=== PATIENT | female | born 1935 | race Caucasian/White ===

== ENCOUNTER 2016-09-15 21:01 | Emergency (ER) | payer MEDICARE, MEDICAID ==
[2016-09-15 21:02] VITALS: BMI 26.1
[2016-09-15 21:17] VITALS: RESP 20
[2016-09-15] MEDS ORDERED: Sodium Chloride 0.9% 500 ML IV ONE (21:43)
[2016-09-15] MEDS ORDERED: Sodium Chloride 0.9% 1,000 ML ONE (22:00)
[2016-09-15 22:08] LABS: BASO % 0.8 % (0.0-2.0); EOS # 0.2 K/uL (0.0-0.7); EOS % 3.8 % (0.0-4.0); HEMATOCRIT 36.9 % (34.0-47.0); LYMPH # 1.6 K/uL (1.0-4.3); LYMPH % 35.1 % (20.0-40.0); MEAN CELL VOLUME 78.6 fL (81.0-99.0); MEAN CORPUSCULAR HEMOGLOBIN 25.4 pg (27.0-31.0); MEAN CORPUSCULAR HGB CONC 32.3 g/dL (33.0-37.0); MEAN PLATELET VOLUME 8.3 fL (7.2-11.7); MONO # 0.4 K/uL (0.0-0.8); MONO % 9.6 % (0.0-10.0); RED CELL DISTRIBUTION WIDTH 15.6 % (11.5-14.5); WHITE BLOOD COUNT 4.6 K/uL (4.8-10.8)
[2016-09-15 22:12] LABS: RBC URINE 6 /hpf (0-3); URINE BACTERIA FEW (<OCC); URINE BILIRUBIN NEGATIVE (NEGATIVE); URINE BLOOD NEGATIVE (NEGATIVE); URINE COLOR Yellow (YELLOW); URINE GLUCOSE (UA) NORMAL (Normal); URINE KETONE NEGATIVE (NEGATIVE); URINE LEUKOCYTE ESTERASE 3+ Leu/uL (Negative); URINE PROTEIN NEGATIVE (NEGATIVE); URINE UROBILINOGEN NORMAL mg/dL (0.2-1.0); WBC URINE 68 /hpf (0-5)
[2016-09-15 22:15] LABS: CHLORIDE 101 mmol/L (98-107); POTASSIUM 3.9 mmol/L (3.6-5.2); SODIUM 139 mmol/L (132-148)
[2016-09-15 22:17] LABS: BILIRUBIN,TOTAL 0.4 mg/dL (0.2-1.3); CARBON DIOXIDE 27 mmol/L (22-30); GFR AFRICAN-AMERICAN > 60
[2016-09-15 22:18] LABS: ALB/GLOB RATIO 1.4 (1.0-2.1); ALKALINE PHOSPHATASE 62 U/L (38-126); ALT/SGPT 28 U/L (9-52); AST/SGOT 22 U/L (14-36); BLOOD UREA NITROGEN 14 mg/dL (7-17); GLUCOSE,RANDOM 93 mg/dL (65-105); TOTAL PROTEIN 6.9 g/dL (6.3-8.3)
[2016-09-15] MEDS ORDERED: Iohexol 240 (50 ml) PO STA (22:19)
[2016-09-15] MEDS ORDERED: DiphenhydrAMINE 50 mg/ml Inj IVP STA (22:23)
[2016-09-15] MEDS ORDERED: Iohexol 240 (50 ml) ONE (22:23)
[2016-09-15] MEDS ORDERED: DiphenhydrAMINE 50 mg/ml Inj ONE (22:29)
--- NOTE | 2016-09-15 22:39 | C.PDOC ---
Time Seen by Provider: 09/15/16 21:29 Chief Complaint (Nursing): Abdominal Pain History Per: Patient, Family Onset/Duration Of Symptoms: Days (chronic), Worse Since (1 week) Current Symptoms Are (Timing): Still Present Severity: Moderate Location Of Pain/Discomfort: Diffuse Quality Of Discomfort: "Pain" Associated Symptoms: Nausea, Diarrhea (frequent stools) Alleviating Factors: None Last Bowel Movement: Today Additional History Per: Prior Records Past Medical History Reviewed: Historical Data, Nursing Documentation, Vital Signs Vital Signs: Last Vital Signs Temp 97.6 F 09/15/16 21:14 Pulse 72 09/15/16 22:48 Resp 20 09/15/16 22:48 BP 168/99 H 09/15/16 22:48 Pulse Ox 92 L 09/15/16 22:48 - Medical History PMH: Anxiety, Arthritis (JOINT PAINS), Depression, HTN, Hypercholesterolemia, Malignancy (Lymphoma (last chemo 1 year ago)) Surgical History: No Surg Hx - [facility] Procedures PERCUTAN NEEDLE BX OF THYROID GLAND (12/12/14) Family History: States: Unknown Family Hx - Social History Hx Tobacco Use: No Hx Alcohol Use: No Hx Substance Use: No - Immunization History Hx Tetanus Toxoid Vaccination: No Hx Influenza Vaccination: No Hx Pneumococcal Vaccination: No Review Of Systems Except As Marked, All Systems Reviewed And Found Negative. Constitutional: Negative for: Fever Cardiovascular: Negative for: Chest Pain Respiratory: Negative for: Shortness of Breath Gastrointestinal: Positive for: Abdominal Pain. Negative for: Vomiting, Melena , Hematochezia, Hematemesis Genitourinary: Negative for: Dysuria Musculoskeletal: Negative for: Neck Pain, Back Pain Skin: Negative for: Rash Neurological: Negative for: Weakness, Numbness, Seizures, Altered Mental Status Physical Exam - Physical Exam Appears: Non-toxic, No Acute Distress Skin: Normal Color, Warm, Dry, No Rash Head: Atraumatic, Normacephalic Eye(s): bilateral: PERRL, EOMI Neck: Normal ROM, Supple Cardiovascular: Rhythm Regular Respiratory: Normal Breath Sounds, No Accessory Muscle Use Gastrointestinal/Abdominal: Soft, Tenderness (mild, diffuse, nonspecific), No Guarding, No Rebound Back: No CVA Tenderness Extremity: Normal ROM Neurological/Psych: Oriented x3, Normal Motor, Normal Sensation ED Course And Treatment - Laboratory Results Result Diagrams: 09/15/16 22:02 09/15/16 22:02 Interpretation Of Abnormal: UTI - CT Scan/US CT abd/pelv Other Rad Studies (CT/US): Read By Radiologist, Radiology Report Reviewed CT/US Interpretation: IMPRESSION: . Hazy infiltration of the root of the mesentery, increased from previous. examination, as detailed above. Persistent moderate hiatal hernia, containing the majority of the stomach as. well as the body of the pancreas, unchanged from prior examination. . Additional nonacute findings, as detailed above. Reassessment Condition: Improved Disposition Discussed With Dr.: Rabia Eduardo Comment: I d/w him the pt's presentation, lab and CT findings. He wants pt to be discharged home on Augmentin and a pain medicine and f/up with him and Dr. Caraballo in the office. Doctor Will See Patient In The: Office Counseled Patient/Family Regarding: Studies Performed, Diagnosis, Need For Followup, Rx Given - Disposition Referrals: Rabia Eduardo MD [Staff Provider] - Disposition: HOME/ ROUTINE Disposition Time: 01:03 Condition: FAIR Additional Instructions: Follow up with Dr. Caraballo this week for further evaluation and treatment. Return to the ER if you develop fever, vomiting, worsening of symptoms or if you have any other concerns. Prescriptions: Amoxicillin/Clavulanate [Augmentin 875 MG-125 MG] 1 tab PO BID #14 tab traMADol/Acetaminophen [Ultracet 325 MG-37.5 MG] 1 tab PO Q4 PRN #30 tab PRN Reason: Pain Instructions: Abdominal Pain (ED), Urinary Tract Infection in Women (ED) - Clinical Impression Clinical Impression: Abdominal pain, Urinary tract infection
[2016-09-15] MEDS ORDERED: Iohexol 350mg/ml 100 ML ONE (23:47)
--- NOTE | 2016-09-16 00:38 | CT ---
EXAM: CT Abdomen and Pelvis With Intravenous Contrast CLINICAL HISTORY: 81 years old, female; Pain; Abdominal pain; Patient HX: 06-24-16; Additional info: Abd pain, h/o lymphoma TECHNIQUE: Axial computed tomography images of the abdomen and pelvis with intravenous contrast. This CT exam was performed using one or more of the following dose reduction techniques: automated exposure control, adjustment of the mA and/or kV according to patient size, and/or use of iterative reconstruction technique. Coronal and sagittal reformatted images were created and reviewed. CONTRAST: 100 mL of [id number] administered intravenously. COMPARISON: CT - ABD PELVIS PO IV CONTRAST 06/24/2016 8:26:47 PM FINDINGS: Lower thorax: A moderate hiatal hernia is again identified, with adjacent compressive atelectasis. The remainder of the bilateral lung bases are clear. ABDOMEN: Liver: No acute findings. Gallbladder and bile ducts: The gallbladder is decompressed, without calcified stones. No significant intra- or extrahepatic biliary ductal dilation. Pancreas: Enhances homogeneously. No ductal dilation. No discrete mass. The body of the pancreas is contained within the hiatal hernia, also unchanged from previous examination performed 06/24/2016. Spleen: No acute findings. Adrenals: No acute findings. Kidneys and ureters: No acute findings. No hydronephrosis or renal calculi. No discrete solid mass. Multiple areas of fluid attenuation are again identified within the bilateral kidneys, unchanged from prior examination. PELVIS: Bladder: The bladder is only minimally distended, and otherwise unremarkable. Reproductive: Calcified fibroids within the uterus. Appendix: The appendix is not visualized, however there is no pericecal inflammatory change to suggest the presence of acute appendicitis. ABDOMEN and PELVIS: Stomach and bowel: The majority of the stomach is contained within the hiatal hernia, and is intrathoracic. No obstruction. No mucosal thickening. A fat containing umbilical hernia persists. Peritoneum: Hazy infiltration of the root of the mesentery, the left of midline, increased from prior examination, best detected on series 2, images 44 through 50. Lymph nodes: No pathologically enlarged lymph nodes. Vasculature: Calcified atherosclerotic disease. Bones: Diffuse bony demineralization. IMPRESSION: Hazy infiltration of the root of the mesentery, increased from previous examination, as detailed above. Persistent moderate hiatal hernia, containing the majority of the stomach as well as the body of the pancreas, unchanged from prior examination. Additional nonacute findings, as detailed above.
[2016-09-16] MEDS ORDERED: Amoxicillin-Clav 875-125 mg Tab PO STA (00:56)
[2016-09-16] MEDS ORDERED: Amoxicillin-Clav 875-125 mg Tab PO ONE (01:01)
[2016-09-16 01:19] VITALS: BP 164/71; PULSE 69; TEMP 98.7; O2SAT 97
== END 2016-09-16 01:20 | disposition home or self-care (01) ==
LOC: C.ER 21:01
DX: N39.0 Urinary tract infection, site not specified (principal); R10.9 Unspecified abdominal pain
CPT/HCPCS: 74177; 80053; 81001; 83690; 85025; 85610; 85730; 87086; 96361; 96374; 96375; 99285; J1200; J2405; J7040; Q9966; Q9967

== ENCOUNTER 2017-02-06 11:59 | Emergency (ER) | payer MEDICARE, MEDICAID ==
[2017-02-06 11:59] VITALS: BMI 26.1
[2017-02-06 12:21] VITALS: BP 131/79; PULSE 75; RESP 16; TEMP 97.6; O2SAT 96
--- NOTE | 2017-02-06 12:44 | C.PDOC ---
History Of Present Illness Heather Adam is a 81 year old female, with a past medical history of hypertension, hypercholesterolemia and arthritis, who presents to the emergency department complaining of left hand pain and swelling x 2 weeks. Notes symptoms began after chemotherapy 2 weeks ago which was administered in that hand. Patient denies any fever, dyspnea, decreased ROM, vomit or diarrhea, trauma. No further medical complaints. Saw PMD 3 days ago and was started on antibiotics. PMD: Rabia Eduardo Time Seen by Provider: 02/06/17 12:32 Chief Complaint (Nursing): Upper Extremity Problem/Injury History Per: Patient History/Exam Limitations: no limitations, language barrier (translated by family member) Onset/Duration Of Symptoms: Days (x2 weeks) Additional History Per: Family Past Medical History Reviewed: Historical Data, Nursing Documentation, Vital Signs Vital Signs: Last Vital Signs Temp 97.6 F 02/06/17 12:13 Pulse 75 02/06/17 12:13 Resp 16 02/06/17 12:13 BP 131/79 02/06/17 12:13 Pulse Ox 96 02/06/17 13:02 - Medical History PMH: Anxiety, Arthritis (JOINT PAINS), Depression, HTN, Hypercholesterolemia, Malignancy (Lymphoma (last chemo 1 year ago)) Denies: Chronic Kidney Disease - [facility] Procedures PERCUTAN NEEDLE BX OF THYROID GLAND (12/12/14) Family History: States: Unknown Family Hx - Social History Hx Tobacco Use: No Hx Alcohol Use: No Hx Substance Use: No - Immunization History Hx Tetanus Toxoid Vaccination: No Hx Influenza Vaccination: No Hx Pneumococcal Vaccination: No Review Of Systems Except As Marked, All Systems Reviewed And Found Negative. Constitutional: Negative for: Fever Gastrointestinal: Negative for: Vomiting Musculoskeletal: Positive for: Hand Pain (left hand swelling & pain) Physical Exam - Physical Exam Additional Physical Exam Comments: Constitutional: No acute distress. Head: Normocephalic. Atraumatic. Eyes: PERRL. ENT: Moist mucous membranes. Neck: Supple. Cardiovascular: Regular rate. Radial pulse 2+ bilaterally. Chest: No tenderness. Respiratory: Clear to auscultation bilaterally. GI: Soft. Nontender. Nondistended. Back: No CVA tenderness. Musculoskeletal: No tenderness to left hand, Full ROM to wrist, forearm, and digits. Mild erythema and mild swelling to dorsal surface of left hand Skin: No rash. Neurologic: Alert, no focal deficit. ED Course And Treatment O2 Sat by Pulse Oximetry: 96 (RA) Pulse Ox Interpretation: Normal Medical Decision Making Medical Decision Making: Patient's hand swelling and erythema very mild and recently started on antibiotics. No vital sign abnormalities, no visible abscess. No evidence of joint involvement. Recommended continuing antibiotics, f/u Dr. Foster, instructed to return to ED immediatley for any fever, worsening redness, inability to move joints, tachycardia. Scribe Attestation Written by Misael Chacon acting as a scribe for Manan Whitmore MD All medical record entries made by the Scribe were at my direction and personally dictated by me. I have reviewed the chart and agree that the record accurately reflects my personal performance of the history, physical exam, medical decision making, and the department course for this patient. I have also personally directed, reviewed, and agree with the discharge instructions and disposition. Disposition - Disposition Referrals: Carlie Foster [Staff Provider] - Disposition: HOME/ ROUTINE Disposition Time: 12:45 Condition: STABLE Instructions: Cellulitis (ED) Forms: [facility] (Moroccan) - Clinical Impression Clinical Impression: Cellulitis
== END 2017-02-06 12:52 | disposition home or self-care (01) ==
LOC: C.ER 11:59
DX: L03.114 Cellulitis of left upper limb (principal)

== ENCOUNTER 2017-05-18 16:21 | Inpatient (IN) | payer MEDICARE, MEDICAID ==
[2017-05-18 16:48] VITALS: BMI 28.1
[2017-05-18] MEDS ORDERED: Aspirin 325 mg EC Tablets PO STA (17:31)
[2017-05-18 17:44] LABS: BASO % 0.8 % (0.0-2.0); EOS # 0.1 K/uL (0.0-0.7); EOS % 3.6 % (0.0-4.0); LYMPH # 0.8 K/uL (1.0-4.3); LYMPH % 22.3 % (20.0-40.0); MEAN CELL VOLUME 76.7 fL (81.0-99.0); MEAN CORPUSCULAR HEMOGLOBIN 24.9 pg (27.0-31.0); MEAN CORPUSCULAR HGB CONC 32.5 g/dL (33.0-37.0); MEAN PLATELET VOLUME 7.9 fL (7.2-11.7); MONO # 0.4 K/uL (0.0-0.8); MONO % 11.6 % (0.0-10.0); NEUT # 2.3 K/uL (1.8-7.0); NEUT % 61.7 % (50.0-75.0); NRBC % 0.2 % (0.0-2.0); RBC 3.89 Mil/uL (3.80-5.20); WHITE BLOOD COUNT 3.8 K/uL (4.8-10.8)
[2017-05-18 17:45] LABS: HEMOGLOBIN 9.7 g/dL (11.0-16.0)
[2017-05-18 17:56] LABS: ALB/GLOB RATIO 1.3 (1.0-2.1); ALBUMIN 3.6 g/dL (3.5-5.0); ALT/SGPT 18 U/L (9-52); AST/SGOT 20 U/L (14-36); BLOOD UREA NITROGEN 11 mg/dL (7-17); CALCIUM 8.1 mg/dl (8.6-10.4); GFR AFRICAN-AMERICAN > 60; GFR NON-AFRICAN AMERICAN > 60; LIPASE 43 U/L (23-300)
[2017-05-18 17:59] LABS: INR 1.1; PROTHROMBIN TIME 11.9 SECONDS (9.7-12.2)
[2017-05-18 18:08] LABS: B-TYPE NATRIURETIC PEPTIDE 373 pg/mL (0-900)
[2017-05-18] MEDS ORDERED: Iodixanol 320 MG/ML 100 ML BOTTLE IV ONE (20:08)
--- NOTE | 2017-05-18 21:31 | CT ---
EXAM: CT Angiography Chest With Intravenous Contrast EXAM DATE/TIME: Exam ordered 05/18/2017 6:42 PM CLINICAL HISTORY: 82 years old, female; Signs and symptoms; Shortness of breath and other: Chest pain; Additional info: Chest pain. SOB. R/O pe. TECHNIQUE: Axial computed tomographic angiography images of the chest with intravenous contrast using pulmonary embolism protocol. All CT scans at this facility use one or more dose reduction techniques, viz.: automated exposure control; ma/kV adjustment per patient size (including targeted exams where dose is matched to indication; i.e. head); or iterative reconstruction technique. MIP reconstructed images were created and reviewed. Coronal and sagittal reformatted images were created and reviewed. CONTRAST: 100 mL of VISIPAQUE 320 administered intravenously. COMPARISON: CT - ANGIO CHEST PE PROTOCOL 2016-02-06 23:04 FINDINGS: Pulmonary arteries: Clot is noted within 2 second generation branches of the right pulmonary artery serving the right lower lobe. Clot is also noted within a second generation branch of the left pulmonary artery serving the left lower lobe. No pulmonary embolism. Aorta: No acute findings. No thoracic aortic aneurysm. Lungs: Compression atelectasis is noted at the right lung base. Pleural space: Unremarkable. No significant effusion. No pneumothorax. Heart: Coronary artery calcification is present. No significant pericardial effusion. No evidence of RV dysfunction. Mediastinum: There is a large paraesophageal hiatal hernia. Thyroid: Coarse calcifications are noted in the left and right lobe of thyroid. Bones/joints: Degenerative disease is noted of the thoracic spine. Soft tissues: Unremarkable. Lymph nodes: Unremarkable. No enlarged lymph nodes. Pancreas: The pancreas is noted within the hiatal hernia sac. Kidneys and ureters: A lobulated low density mass is noted in the upper pole of the right kidney with a density measurement of 17 H. It is not seen in its entirety. A 3.7 cm low-density mass is noted projecting off the upper pole of the left kidney with a density measurement of 15 H. Is not seen in its entirety. IMPRESSION: 1. Pulmonary embolism. 2. Large paraesophageal hiatal hernia. The hernia sac contains the stomach and a portion of the pancreas. 3. Bilateral renal cysts. These are seen incompletely on this examination. Images were attached to this report and are available at [email or web address]
[2017-05-18] MEDS ORDERED: Enoxaparin 80 mg Syringe SC STA (21:58)
--- NOTE | 2017-05-18 22:06 | C.PDOC ---
Time Seen by Provider: 05/18/17 17:01 Chief Complaint (Nursing): Chest Pain History Per: Patient, Family Onset/Duration Of Symptoms: Days (2) Current Symptoms Are (Timing): Still Present Severity: Moderate Associated Symptoms: Dyspnea Additional History Per: Prior Records Past Medical History Reviewed: Historical Data, Nursing Documentation, Vital Signs Vital Signs: Last Vital Signs Temp 98.8 F 05/18/17 20:02 Pulse 73 05/18/17 20:02 Resp 17 05/18/17 20:02 BP 167/76 H 05/18/17 19:09 Pulse Ox 97 05/18/17 20:02 - Medical History PMH: Anxiety, Arthritis (JOINT PAINS), Depression, Fractures (right lower extremity), HTN, Hypercholesterolemia, Malignancy (Lymphoma (last chemo 1 year ago)) - [facility] Procedures PERCUTAN NEEDLE BX OF THYROID GLAND (12/12/14) Family History: States: Unknown Family Hx - Social History Hx Tobacco Use: No Hx Alcohol Use: No Hx Substance Use: No - Immunization History Hx Tetanus Toxoid Vaccination: No Hx Influenza Vaccination: No Hx Pneumococcal Vaccination: No Review Of Systems Except As Marked, All Systems Reviewed And Found Negative. Constitutional: Negative for: Fever Cardiovascular: Positive for: Chest Pain Respiratory: Positive for: Shortness of Breath. Negative for: Hemoptysis Gastrointestinal: Negative for: Vomiting, Abdominal Pain Musculoskeletal: Positive for: Leg Pain Skin: Negative for: Rash Neurological: Negative for: Weakness, Numbness, Seizures Physical Exam - Physical Exam Appears: Non-toxic, No Acute Distress Skin: Normal Color, Warm, Dry Head: Atraumatic, Normacephalic Eye(s): bilateral: PERRL, EOMI Neck: Normal ROM, Supple Gastrointestinal/Abdominal: Soft, No Tenderness Back: No CVA Tenderness Extremity: Other (Cast on RLE and knee brace on LLE.) Pulses: Left Dorsalis Pedis: Normal, Right Dorsalis Pedis: Normal Neurological/Psych: Oriented x3, Normal Motor, Normal Sensation ED Course And Treatment - Laboratory Results Result Diagrams: 05/18/17 17:41 05/18/17 17:41 Lab Interpretation: Abnormal Interpretation Of Abnormal: Mild anemia. Positive D-Dimer. ECG: Interpreted By Me, Viewed By Me ECG Rhythm: Sinus Rhythm, Nonspecific Changes ECG Interpretation: No Acute Changes Rate From EC O2 Sat by Pulse Oximetry: 97 Pulse Ox Interpretation: Normal - CT Scan/US CTA of chest Other Rad Studies (CT/US): Read By Radiologist, Radiology Report Reviewed CT/US Interpretation: IMPRESSION: 1. Pulmonary embolism. . 2. Large paraesophageal hiatal hernia. The hernia sac contains the stomach and. a portion of the pancreas. . 3. Bilateral renal cysts. These are seen incompletely on this examination. Progress Note: Pt state that she had fallen on May 11, 2017 and that she followed up with an orthopedic surgeon and placed in a cast. Progress - Interventions Interventions:: Observation - Medications Administered Oral: Aspirin Subcutaneous: other (Lovenox) - Data Reviewed Data Reviewed: Lab, Diagnostic imaging, EKG, Old records - Patient Status Patient status: Partially improved - Continuity of Care Discussed patient case with:: Patient, Family-HIPPA compliant, ED Nurse, PMD - Patient Plan Patient Plan: Admission, Telemetry Disposition Discussed With DrStef: Rabia Eduardo Comment: He accepted pt on his service. Doctor Will See Patient In The: Hospital Counseled Patient/Family Regarding: Studies Performed, Diagnosis - Disposition Disposition: HOSPITALIZED Disposition Time: 22:13 Condition: FAIR - Clinical Impression Clinical Impression: Pulmonary embolism
[2017-05-18] MEDS ORDERED: Enoxaparin 80 mg Syringe ONE (22:07)
[2017-05-19] MEDS ORDERED: Home Med 1 UNIT (Tramadol/Acetaminophen [Ultracet 37.5/325 Mg] 1 TAB) PO PRN (01:00)
--- NOTE | 2017-05-19 10:00 | RAD ---
PROCEDURE: CHEST RADIOGRAPH, 1 VIEW HISTORY: chest pain, SOB COMPARISON: 02/13/2016 FINDINGS: LUNGS: Linear subsegmental atelectasis at both lung bases. PLEURA: No pneumothorax or pleural fluid seen. CARDIOVASCULAR: Normal. OSSEOUS STRUCTURES: No significant abnormalities. VISUALIZED UPPER ABDOMEN: Normal. OTHER FINDINGS: None. IMPRESSION: Bibasilar subsegmental atelectasis. No acute infiltrate.
[2017-05-19] MEDS: Pantoprazole 40 mg EC Tab PO SCH (10:26)
[2017-05-19] MEDS: Enoxaparin 80 mg Syringe SC SCH ×2 (10:27→21:58)
[2017-05-19] MEDS ORDERED: Aluminum Hydroxide/Magnesium Hydroxide Susp (30 mL) PO ONE (13:00)
--- NOTE | 2017-05-19 18:02 | CP.PCM.CON ---
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 She states that the chest pain is within the generalized area surrounding her sternum. The chest pain began 2 days ago, has been persistent, and has progressively worsened today. She rates the pain at an 8-9/10 compared to a 6/10 yesterday. She states that on she fell on her knees, went to the ER, and was diagnosed with a "knee" fracture for which her right leg was placed in a cast by Dr. Bartholomew in the outpatient setting. She has been immobile for over the past 7 days. She denies any prior history of DVT/PE. She denies any recent travel or sick contacts. However, she does admit to having small cell lymphoma for which she was treated with chemotherapy 4 months ago. Her Well's score is an 8.5 placing her in the high risk group for PE. Chest CT confirms the presence of bilateral pulmonary embolisms within the second generation branches of both pulmonary arteries. D-Dimer is 1572. Social history: The patient denies tobacco, alcohol, and illicit drug use. 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, hypertension, hyperlipidemia, and GERD Allergies: denies Surgical history: denies Medications: Aspirin 81 mg daily, Coreg 3.125 mg twice a day, Crestor 5 mg daily , Lyrica 100 mg daily, Paxil 25 mg daily, Protonix 40 mg daily, Metoprolol 25 mg daily Review of Systems - Review of Systems All systems: reviewed and no additional remarkable complaints except (chest pain /leg pain) Past Patient History - Infectious Disease Hx of Infectious Diseases: None - Past Medical History & Family History Past Medical History?: Yes - Past Social History Smoking Status: Never Smoked - CARDIAC Hx Cardiac Disorders: Yes Hx Hypercholesterolemia: Yes Hx Hypertension: Yes - PULMONARY Hx Respiratory Disorders: No - NEUROLOGICAL Hx Neurological Disorder: No - HEENT Hx HEENT Problems: No - RENAL Hx Chronic Kidney Disease: No - ENDOCRINE/METABOLIC Hx Endocrine Disorders: Yes Other/Comment: THYROID NODULE - HEMATOLOGICAL/ONCOLOGICAL Hx Blood Disorders: Yes Hx Cancer: Yes (LYMPHOMA,stomach cancer) Hx Chemotherapy: Yes Other/Comment: stomach CA currently on chemo tharapy 01/2017 - INTEGUMENTARY Hx Dermatological Problems: No - MUSCULOSKELETAL/RHEUMATOLOGICAL Hx Musculoskeletal Disorders: Yes Hx Arthritis: Yes (JOINT PAINS) Hx Falls: Yes Hx Fractures: Yes (right lower extremity) - GASTROINTESTINAL Hx Gastrointestinal Disorders: Yes Hx Gastroesophageal Reflux: Yes - GENITOURINARY/GYNECOLOGICAL Hx Genitourinary Disorders: No - PSYCHIATRIC Hx Psychophysiologic Disorder: Yes Hx Anxiety: Yes Hx Depression: Yes Hx Substance Use: No - SURGICAL HISTORY Hx Surgeries: Yes Hx Orthopedic Surgery: Yes (with right leg cast) - ANESTHESIA Hx Anesthesia: Yes Hx Anesthesia Reactions: No Hx Malignant Hyperthermia: No Has any member of the family had a problem w/ anesthesia?: No Meds Allergies/Adverse Reactions: Allergies Allergy/AdvReac Type Severity Reaction Status Date / Time No Known Allergies Allergy Verified 05/18/17 16:44 - Medications Medications: Current Medications Bisoprolol Fumarate (Zebeta) 5 mg PO DAILY [facility] Last Admin: 05/19/17 10:27 Dose: 5 mg Dicyclomine HCl (Bentyl) 20 mg PO DAILY [facility] Last Admin: 05/19/17 10:28 Dose: 20 mg Docusate Sodium (Colace) 100 mg PO TID [facility] Last Admin: 05/19/17 16:17 Dose: 100 mg Ezetimibe (Zetia) 10 mg PO DAILY [facility] Last Admin: 05/19/17 10:28 Dose: 10 mg Enoxaparin Sodium (Lovenox) 80 mg SC Q12 [facility] Last Admin: 05/19/17 10:27 Dose: 80 mg Home Med (Creon Dr 24,000 Units Capsule) 24,000 units PO BID [facility] Pantoprazole Sodium (Protonix Ec Tab) 40 mg PO DAILY [facility] Last Admin: 05/19/17 10:26 Dose: 40 mg Paroxetine HCl (Paxil Cr) 25 mg PO DAILY [facility] Last Admin: 05/19/17 10:27 Dose: 25 mg Rosuvastatin Calcium (Crestor) 5 mg PO HS [facility] Tramadol HCl (Ultram) 25 mg PO Q6H PRN PRN Reason: Pain, moderate (4-7) Physical Exam - Head Exam Head Exam: ATRAUMATIC, NORMOCEPHALIC - ENT Exam ENT Exam: Mucous Membranes Moist - Neck Exam Neck exam: Positive for: Normal Inspection - Respiratory Exam Respiratory Exam: Clear to Auscultation Bilateral - Cardiovascular Exam Cardiovascular Exam: REGULAR RHYTHM - GI/Abdominal Exam GI & Abdominal Exam: Normal Bowel Sounds, Soft - Neurological Exam Neurological exam: Alert, Oriented x3 Results - Vital Signs Recent Vital Signs: Last Vital Signs Temp 98.2 F 05/19/17 16:00 Pulse 72 05/19/17 16:00 Resp 14 05/19/17 16:00 BP 127/62 05/19/17 13:46 Pulse Ox 92 L 05/19/17 16:00 - Labs Result Diagrams: 05/18/17 17:41 05/18/17 17:41 Labs: Laboratory Results - last 24 hr 05/18/17 05/18/17 05/19/17 17:41 17:41 07:13 PT 11.9 INR 1.1 APTT 27 D-Dimer, Quantitative 1572 H POC Glucose (mg/dL) 88 Troponin I < 0.0120 NT-Pro-B Natriuret Pep 373 05/19/17 05/19/17 11:29 16:17 PT INR APTT D-Dimer, Quantitative POC Glucose (mg/dL) 115 H 105 Troponin I NT-Pro-B Natriuret Pep Assessment & Plan (1) Pulmonary embolism Status: Acute Comment: continue anticoagulation//Lovenox. Venous Doppler of lower extremity. Echocardiogram. No shortness of breath
[2017-05-19] MEDS: Tramadol 25 mg PO PRN (22:09)
[2017-05-20] MEDS: Pantoprazole 40 mg EC Tab PO SCH (10:30)
[2017-05-20] MEDS: Enoxaparin 80 mg Syringe SC SCH ×2 (11:12→21:46)
[2017-05-20 12:11] LABS: BASO % 0.9 % (0.0-2.0); EOS # 0.1 K/uL (0.0-0.7); EOS % 2.1 % (0.0-4.0); HEMOGLOBIN 10.5 g/dL (11.0-16.0); LYMPH # 0.9 K/uL (1.0-4.3); MEAN CORPUSCULAR HEMOGLOBIN 25.5 pg (27.0-31.0); MEAN CORPUSCULAR HGB CONC 32.6 g/dL (33.0-37.0); MEAN PLATELET VOLUME 8.7 fL (7.2-11.7); MONO # 0.5 K/uL (0.0-0.8); NEUT # 3.5 K/uL (1.8-7.0); RBC 4.13 Mil/uL (3.80-5.20); RED CELL DISTRIBUTION WIDTH 16.4 % (11.5-14.5)
[2017-05-20 12:53] LABS: BLOOD UREA NITROGEN 11 mg/dL (7-17); CALCIUM 8.1 mg/dl (8.6-10.4); GFR AFRICAN-AMERICAN > 60; GFR NON-AFRICAN AMERICAN > 60
--- NOTE | 2017-05-20 12:58 | CT ---
PROCEDURE: HISTORY: R knee patella fracture COMPARISON: None TECHNIQUE: Axial imaging through the left knee with coronal and sagittal thin section reformations cancer for surface rendering algorithm was were applied/performed IV contrast: None Dose report: Total exam DLP: 345 FINDINGS: Scanogram: Bracing device in place next comminuted patellar fracture - 6 major fracture fragments noted on surface rendering. Small chip fracture fragments anterior patellar I expect axis series 2, image 49 and 50. The greatest separation of fracture involves the superior neural fragment are displaced from another major fragment axis series 2, image 44 the maximum separation of these 2 fracture fragments is 7 mm series 2, image 44 along the anterior aspect of these fracture fragments. The cephalo caudal extent of the fracture fragment separation is 6 mm on sagittal series 602 image 41 There is trace lateral orientation of the comminuted fracture fragments and lateral patellofemoral joint space narrowing noted. The overall patellar height years probably top-normal and noting the fracture fragment distances No femoral or tibial fracture is noted. Retropatellar joint effusion IMPRESSION: Comminuted patellar fracture -study for mapping/treatment purposes Major fracture fragments and separations -as above Retropatellar joint effusion .
--- NOTE | 2017-05-20 13:04 | HP ---
HISTORY OF PRESENT ILLNESS: The patient was seen on 05/19/2017. She is an 82-year-old [place] female with history of multiple medical problems including small-cell lymphoma, intestinal lymphoma, on chemotherapy. The patient had a fall with right patellar fracture as well as left stress fracture on the left tibia. The patient was treated with a cast as an outpatient by Dr. Carpenter. The patient presented to emergency room with symptoms of shortness of breath and chest pain. The patient was evaluated and found to have bilateral pulmonary embolism. The patient was started on low-molecular weight heparin and admitted to Intensive Care Unit. REVIEW OF SYSTEMS: Other review of systems is negative. ALLERGIES: NO KNOWN ALLERGY. HOME MEDICATIONS: As per MAR. SOCIAL HISTORY: No history of smoking, EtOH or substance abuse. FAMILY HISTORY: Noncontributory. PAST MEDICAL HISTORY: Small-cell lymphoma, on chemotherapy; hypertension; osteoarthritis; anemia of chronic disease. PHYSICAL EXAMINATION: GENERAL: The patient was in bed, not in any cardiopulmonary distress at the time of this examination. VITAL SIGNS: Blood pressure 127/62, temperature 98.2, respiratory rate 18 and pulse 76. HEENT: Pupils equal, reactive to light. Normal-appearing mucosa of the conjunctivae, oropharyngeal and nasal membrane mucosa. NECK: Supple. No JVD. No carotid bruit. No lymph node. No thyromegaly. CHEST AND LUNGS: Bilateral symmetrical expansion. Good air exchange. No rales. No rhonchi. CARDIOVASCULAR SYSTEM: PMI not localized. S1, S2. No additional sounds. ABDOMEN: Normoactive bowel sounds. No tenderness. No organomegaly. No masses. EXTREMITIES: No cyanosis, no clubbing, no edema. PEDIATRIC PHYSICIAN: Alert, awake, oriented x2. No neurological deficit could be appreciated. ASSESSMENT: 1. Pulmonary embolism. 2. Status post fall with bilateral tibial fracture. 3. Hypertension. 4. Small-cell lymphoma, on chemotherapy. PLAN: Continue current Lovenox and done great care to telemetry floor. Discussed the patient's condition with Dr. Carpenter, who decided to treat the patient conservatively with no surgical intervention at this point. I Will start physical therapy. Vascular surgery for possible IVC filter placement. [facility] MD Jayce [facility] # [id number]
--- NOTE | 2017-05-20 13:12 | VASCLAB ---
PROCEDURE: Left Lower Extremity Venous Duplex Exam. HISTORY: PE,r/o dvt PRIORS: None. TECHNIQUE: Left common femoral, femoral, popliteal and posterior tibial, peroneal and great saphenous veins were evaluated. Flow was assessed with color Doppler, compressibility, assessment of phasic flow and augmentation response. Report prepared by LONG Alejo, RVT FINDINGS: LEFT: 1. Common Femoral Vein: 1.1. Compressibility - Fully compressible: Thrombus - None : Flow - Phasic: Augmentation -Normal: Reflux - None. 2. Femoral Vein: 2.1. Compressibility - Fully compressible: Thrombus - None: Flow - Phasic: Augmentation -Normal: Reflux - None. 3. Popliteal Vein: 3.1. Compressibility - Fully compressible: Thrombus - None: Flow - Phasic: Augmentation -Normal: Reflux - None. 4. Posterior Tibial Vein: 4.1. Compressibility - Fully compressible: Thrombus - None: Flow - Phasic: Augmentation -Normal: Reflux - None. 5. Peroneal Vein: 5.1. Compressibility - Fully compressible: Thrombus - None: Flow - Phasic: Augmentation -Normal: Reflux - None. 6. Great Saphenous Vein: 6.1. Compressibility - Fully compressible: Thrombus - None: Flow - Phasic: Augmentation - Normal: Reflux - None. OTHER FINDINGS: IMPRESSION: No evidence of deep or superficial vein thrombosis of the left lower extremity with excellent venous flow. Normal valve function noted of the left side. Normal venous flow noted in the right common femoral vein.
--- NOTE | 2017-05-20 14:46 | MRI ---
PROCEDURE: MRI Left Knee HISTORY: Pain. COMPARISON: None available. TECHNIQUE: Multiecho multiplanar sequences were performed through the left knee. FINDINGS: Patient motion artifact limits evaluation. ANTERIOR CRUCIATE LIGAMENT:: Intact. POSTERIOR CRUCIATE LIGAMENT:: Intact. MEDIAL MENISCUS:: Increased signal within the meniscus, consistent with myxoid degeneration LATERAL MENISCUS:: No definite tear identified. However, evaluation is limited by patient motion artifact. There is increased signal within the meniscus, consistent with myxoid degeneration. MEDIAL COLLATERAL LIGAMENT:: Intact. LATERAL COLLATERAL LIGAMENT COMPLEX:: Intact. QUADRICEPS TENDON:: Intact. PATELLAR TENDON:: Intact. CARTILAGE:: Focal cartilage defect involving the medial aspect of the lateral femoral condyle with underlying marrow edema. Findings measure 0.3 cm and are consistent with osteochondral lesion. . Thinning of patellar cartilage noted. JOINT FLUID:: There is no significant joint effusion. Popliteal fossa cyst noted measuring 2.5 x 2.4 cm. OSSEOUS STRUCTURES:: Marrow edema noted within the patella, likely bone bruise. No definite fracture line is seen within the patella. There is tricompartmental periarticular osteophyte formation. OTHER FINDINGS: Subcutaneous soft tissue swelling noted anterior to the patella. Edema noted within the infrapatellar soft tissues. Subcutaneous and deep soft tissue edema noted along the lateral aspect of the distal thigh. IMPRESSION: Marrow edema within the patella, consistent with bone contusion. No definite fracture line identified. Chondromalacia patella. Osteochondral lesion of the lateral femoral condyle as above. Popliteal fossa cyst measuring 2.5 cm. Additional findings as above.
--- NOTE | 2017-05-20 17:07 | CP.PCM.CON ---
History of Present Illness - History of Present Illness History of Present Illness: Surgery 80 F w h/o lymphoma s/p chemotherapy came after she fell on her R side and substernal pain. Pt fell about a week ago on the R side and fractured her R patella. She has been immobile for a week because of the injury. she D-dimer is found to be [address] of the chest shows R pulmonary embolism. Pt has cast on her R leg. US of leg shows no L LE DVT and R SFA is patent. Because of the cast R lower leg duplex couldn't be done. Denies F/C/N/V/D/SOB. Surgery is consulted to evaluate for IVC filter. Social history: The patient denies tobacco, alcohol, and illicit drug use. 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, hypertension, hyperlipidemia, and GERD Allergies: denies Surgical history: denies Medications: Aspirin 81 mg daily, Coreg 3.125 mg twice a day, Crestor 5 mg daily , Lyrica 100 mg daily, Paxil 25 mg daily, Protonix 40 mg daily, Metoprolol 25 mg daily Review of Systems - Review of Systems Review of Systems: See HPI Past Patient History - Infectious Disease Hx of Infectious Diseases: None - Past Medical History & Family History Past Medical History?: Yes - Past Social History Smoking Status: Never Smoked - CARDIAC Hx Cardiac Disorders: Yes Hx Hypercholesterolemia: Yes Hx Hypertension: Yes - PULMONARY Hx Respiratory Disorders: No - NEUROLOGICAL Hx Neurological Disorder: No - HEENT Hx HEENT Problems: No - RENAL Hx Chronic Kidney Disease: No - ENDOCRINE/METABOLIC Hx Endocrine Disorders: Yes Other/Comment: THYROID NODULE - HEMATOLOGICAL/ONCOLOGICAL Hx Blood Disorders: Yes Hx Cancer: Yes (LYMPHOMA,stomach cancer) Hx Chemotherapy: Yes Other/Comment: stomach CA currently on chemo tharapy 01/2017 - INTEGUMENTARY Hx Dermatological Problems: No - MUSCULOSKELETAL/RHEUMATOLOGICAL Hx Musculoskeletal Disorders: Yes Hx Arthritis: Yes (JOINT PAINS) Hx Falls: Yes Hx Fractures: Yes (right lower extremity) - GASTROINTESTINAL Hx Gastrointestinal Disorders: Yes Hx Gastroesophageal Reflux: Yes - GENITOURINARY/GYNECOLOGICAL Hx Genitourinary Disorders: No - PSYCHIATRIC Hx Psychophysiologic Disorder: Yes Hx Anxiety: Yes Hx Depression: Yes Hx Substance Use: No - SURGICAL HISTORY Hx Surgeries: Yes Hx Orthopedic Surgery: Yes (with right leg cast) - ANESTHESIA Hx Anesthesia: Yes Hx Anesthesia Reactions: No Hx Malignant Hyperthermia: No Has any member of the family had a problem w/ anesthesia?: No Meds Allergies/Adverse Reactions: Allergies Allergy/AdvReac Type Severity Reaction Status Date / Time No Known Allergies Allergy Verified 05/18/17 16:44 - Medications Medications: Current Medications Acetaminophen (Tylenol 325mg Tab) 650 mg PO Q6 PRN PRN Reason: Headache Bisoprolol Fumarate (Zebeta) 5 mg PO DAILY [facility] Last Admin: 05/20/17 10:31 Dose: 5 mg Dicyclomine HCl (Bentyl) 20 mg PO DAILY [facility] Last Admin: 05/20/17 10:31 Dose: 20 mg Docusate Sodium (Colace) 100 mg PO TID [facility] Last Admin: 05/20/17 14:28 Dose: 100 mg Ezetimibe (Zetia) 10 mg PO DAILY [facility] Last Admin: 05/20/17 10:31 Dose: 10 mg Enoxaparin Sodium (Lovenox) 80 mg SC Q12 [facility] Last Admin: 05/20/17 11:12 Dose: 80 mg Home Med (Creon Dr 24,000 Units Capsule) 24,000 units PO BID [facility] Pantoprazole Sodium (Protonix Ec Tab) 40 mg PO DAILY [facility] Last Admin: 05/20/17 10:30 Dose: 40 mg Paroxetine HCl (Paxil Cr) 25 mg PO DAILY [facility] Last Admin: 05/20/17 10:31 Dose: 25 mg Rosuvastatin Calcium (Crestor) 5 mg PO HS [facility] Last Admin: 05/19/17 21:58 Dose: 5 mg Tramadol HCl (Ultram) 25 mg PO Q6H PRN PRN Reason: Pain, moderate (4-7) Last Admin: 05/19/17 22:09 Dose: 25 mg Physical Exam - Constitutional Appears: In Acute Distress - Head Exam Head Exam: ATRAUMATIC, NORMAL INSPECTION, NORMOCEPHALIC - Eye Exam Eye Exam: EOMI, Normal appearance, PERRL Pupil Exam: NORMAL ACCOMODATION, PERRL - ENT Exam ENT Exam: Mucous Membranes Moist, Normal Exam - Neck Exam Neck exam: Positive for: Normal Inspection - Cardiovascular Exam Cardiovascular Exam: REGULAR RHYTHM, +S1, +S2 - GI/Abdominal Exam GI & Abdominal Exam: Normal Bowel Sounds, Soft. absent: Distended, Tenderness - Extremities Exam Extremities exam: Negative for: full ROM, normal inspection Additional comments: R leg has caste from foot above knee - Back Exam Back exam: NORMAL INSPECTION - Neurological Exam Neurological exam: Alert, CN II-XII Intact, Oriented x3, Reflexes Normal - Psychiatric Exam Psychiatric exam: Normal Affect, Normal Mood - Skin Skin Exam: Dry, Intact, Normal Color, Warm Results - Vital Signs Recent Vital Signs: Last Vital Signs Temp 97.9 F 05/20/17 16:00 Pulse 74 05/20/17 16:00 Resp 20 05/20/17 16:00 BP 146/68 05/20/17 16:00 Pulse Ox 95 05/20/17 16:00 - Labs Result Diagrams: 05/20/17 12:03 05/20/17 12:05 Labs: Laboratory Results - last 24 hr 05/20/17 05/20/17 12:03 12:05 WBC 5.0 RBC 4.13 Hgb 10.5 L Hct 32.2 L MCV 78.0 L MCH 25.5 L MCHC 32.6 L RDW 16.4 H Plt Count 234 MPV 8.7 Neut % (Auto) 69.0 Lymph % (Auto) 18.0 L Heard % (Auto) 10.0 Eos % (Auto) 2.1 Baso % (Auto) 0.9 Neut # 3.5 Lymph # 0.9 L Heard # 0.5 Eos # 0.1 Baso # 0.0 Sodium 134 Potassium 3.6 Chloride 95 L Carbon Dioxide 32 H Anion Gap 11 BUN 11 Creatinine 0.6 L Est GFR ( Amer) > 60 Est GFR (Non-Af Amer) > 60 Random Glucose 103 Calcium 8.1 L Assessment & Plan - Assessment and Plan (Free Text) Assessment: R pulmonary embolism s/p R leg injury OR on Wednesday for IVC filter NPO after midnight Pain control Consent obtained DW Dr. Lopez
--- NOTE | 2017-05-21 07:06 | CARD ---
APPROVED REPORT EKG Measurement Heart [id number] MI [id number] <Conclusion> Normal sinus rhythm Normal ECG
[2017-05-21] MEDS ORDERED: HEPARIN-NS 5,000 UNITS/500 ML 5,000 UNIT/500 ML BAG IV ONE (09:26)
[2017-05-21] MEDS ORDERED: Iodixanol 320 MG/ML 200 ML BOTTLE IV ONE (09:26)
[2017-05-21] MEDS: Pantoprazole 40 mg EC Tab PO SCH (09:48)
[2017-05-21] MEDS: Enoxaparin 80 mg Syringe SC SCH ×2 (09:53→21:42)
--- NOTE | 2017-05-21 10:24 | CP.PCM.PN ---
Subjective - Date & Time of Evaluation Date of Evaluation: 05/21/17 Time of Evaluation: 08:25 - Subjective Subjective: Patient seen and evaluated at bedside. NAD, resting comfortably. Denies chest pain and shortness of breath. Objective - Vital Signs/Intake and Output Vital Signs (last 24 hours): Temp Pulse Resp BP Pulse Ox 98.2 F 79 20 157/77 H 94 L 05/21/17 07:35 05/21/17 07:35 05/21/17 07:35 05/21/17 07:35 05/21/17 07:35 - Medications Medications: Current Medications Acetaminophen (Tylenol 325mg Tab) 650 mg PO Q6 PRN PRN Reason: Headache Bisoprolol Fumarate (Zebeta) 5 mg PO DAILY [facility] Last Admin: 05/21/17 09:49 Dose: 5 mg Dicyclomine HCl (Bentyl) 20 mg PO DAILY [facility] Last Admin: 05/21/17 09:48 Dose: 20 mg Docusate Sodium (Colace) 100 mg PO TID [facility] Last Admin: 05/20/17 17:31 Dose: 100 mg Ezetimibe (Zetia) 10 mg PO DAILY [facility] Last Admin: 05/21/17 09:49 Dose: 10 mg Enoxaparin Sodium (Lovenox) 80 mg SC Q12 [facility] Last Admin: 05/21/17 09:53 Dose: 80 mg Home Med (Creon Dr 24,000 Units Capsule) 24,000 units PO BID [facility] Pantoprazole Sodium (Protonix Ec Tab) 40 mg PO DAILY [facility] Last Admin: 05/21/17 09:48 Dose: 40 mg Paroxetine HCl (Paxil Cr) 25 mg PO DAILY [facility] Last Admin: 05/21/17 09:48 Dose: 25 mg Rosuvastatin Calcium (Crestor) 5 mg PO HS [facility] Last Admin: 05/20/17 21:46 Dose: 5 mg Tramadol HCl (Ultram) 25 mg PO Q6H PRN PRN Reason: Pain, moderate (4-7) Last Admin: 05/19/17 22:09 Dose: 25 mg - Labs Labs: 05/20/17 12:03 05/20/17 12:05 PT 11.9 SECONDS (9.7-12.2) 05/18/17 17:41 INR 1.1 05/18/17 17:41 APTT 27 SECONDS (21-34) 05/18/17 17:41 - Head Exam Head Exam: ATRAUMATIC, NORMOCEPHALIC - Eye Exam Eye Exam: Normal appearance - ENT Exam ENT Exam: Mucous Membranes Moist - Respiratory Exam Respiratory Exam: Clear to Ausculation Bilateral - Cardiovascular Exam Cardiovascular Exam: REGULAR RHYTHM Assessment and Plan (1) Pulmonary embolism Assessment & Plan: Consider oral anticoagulation ( elaquis) if okay with surgery- pt to go to OR today for IVC filter. Status: Acute
[2017-05-21] MEDS ORDERED: Lactated Ringer's 1,000 ML IV ONE (10:50)
[2017-05-21] MEDS ORDERED: Propofol 10 mg/ml Inj (20 ML) ONE ×2 (11:10→11:11)
[2017-05-21] MEDS ORDERED: Lidocaine 1% Inj (20ml) ONE (11:12)
[2017-05-21] MEDS ORDERED: Vancomycin 1 gm/D5W 200 ml 1 GM/200 ML BAG IVPB ONE (11:20)
[2017-05-21] MEDS ORDERED: HYDROmorphone 0.5 mg/0.5 ml ISec IVP PRN (11:44)
--- NOTE | 2017-05-21 12:01 | PCM.SURG1 ---
Surgeon's Initial Post Op Note - Surgeon's Notes Surgeon: Dr. Lopez Qc Analyst: Howard PGY1 Type of Anesthesia: IV Sedation, Local Pre-Operative Diagnosis: Bilateral PEs, hypercoagulabilty, fall risk Operative Findings: see operative report Post-Operative Diagnosis: Bilateral PEs, hypercoagulabilty, fall risk Operation Performed: IVC filter insertion Specimen/Specimens Removed: N/A Estimated Blood Loss: EBL {In ML}: 10 Blood Products Given: N/A Drains Used: No Drains Post-Op Condition: Good Date of Surgery/Procedure: 05/21/17 Time of Surgery/Procedure: 11:00
--- NOTE | 2017-05-21 13:03 | RAD ---
PROCEDURE: Intraoperative Fluoroscopy. HISTORY: PE FINDINGS: Fluoroscopic assistance was provided. 109.9 seconds fluoroscopy time utilized during this procedure. Radiation dose = 13.26 mGy. Please refer to the operative report for additional details.
[2017-05-21] MEDS: Tramadol 25 mg PO PRN ×2 (16:01→23:29)
--- NOTE | 2017-05-21 21:59 | OP ---
PROCEDURE DATE: PREOPERATIVE DIAGNOSES: Pulmonary embolism, status post right leg fracture. POSTOPERATIVE DIAGNOSES: Pulmonary embolism, status post right leg fracture. PROCEDURE: Insertion of IVC filter, duplex ultrasound of the right femoral vein. SURGEON: Nani Lopez MD. TYPE OF ANESTHESIA: Local with IV sedation. DESCRIPTION OF PROCEDURE: The patient was brought into the OR and placed supine on the OR table. After adequate IV sedation had been accomplished, an ultrasound of both femoral vein was performed showing patency of both femoral vein and its branches. The right-sided femoral, profundus femoral and superficial femoral vein were all compressible. The right groin was prepped and draped as a sterile field. Using a micropuncture kit ultrasound, the right femoral vein was percutaneously accessed and a guidewire was passed into the iliac vein. The guidewire was exchanged for , which was passed to the superior vena cava. The puncture site was then enlarged. The sheath dilator unit was passed as one unit over the guidewire into the level of L4-L5. The dilator was removed. A venacavogram was performed showing the both renal vein to be at the same level of L1 lumbar vertebral body. The site for the deployment was marked out. The sheath was then advanced to the filter was passed into such as the tip of the filter was at the site trupti on the screen of the C-arm. The filter was deployed by pulling back the sheath. The filter was slowly deployed. The sheath was removed and pressure was held at the right groin for 10 minutes. Sterile dressing was applied. The patient tolerated the procedure well and was returned to the recovery room in stable condition. Nani Lopez MD
--- NOTE | 2017-05-21 23:08 | CARD ---
APPROVED REPORT EXAM: Two-dimensional and M-mode echocardiogram with Doppler and color Doppler. Other Information Quality : GoodRhythm : INDICATION Pulmonary Embolism LV Function:Systolic RISK FACTORS Hyperlipidemia 2D DIMENSIONS IVSd1.1 (0.7-1.1cm)LVDd4.1 (3.9-5.9cm) PWd1.0 (0.7-1.1cm)LVDs2.5 (2.5-4.0cm) FS (%) 37.5 %LVEF (%)68.0 (>50%) M-Mode DIMENSIONS Left Atrium (MM)2.45 (2.5-4.0cm)Aortic Root3.21 (2.2-3.7cm) Aortic Cusp Exc.1.56 (1.5-2.0cm) Mitral Valve MV E Gxnbxxnt99.2cm/sMV A Tzrpiwkj46.2cm/sE/A ratio0.7 TDI E/Lateral E'0.0E/Medial E'0.0 Tricuspid Valve TR Peak Pdznjioo275ei/sTR Peak Gr.[id number] LEFT VENTRICLE The left ventricle is normal size. There is normal left ventricular wall thickness. The left ventricular function is normal. The left ventricular ejection fraction is within the normal range. About 60% No regional wall motion abnormalities noted. Transmitral Doppler flow pattern is Grade I-abnormal relaxation pattern. No left ventricle thrombus noted on this study. There is no ventricular septal defect visualized. There is no left ventricular aneurysm. There is no mass noted in the left ventricle. RIGHT VENTRICLE The right ventricle is normal size. There is normal right ventricular wall thickness. The right ventricular systolic function is normal. ATRIA The left atrium size is normal. The right atrium size is normal. The interatrial septum is intact with no evidence for an atrial septal defect. AORTIC VALVE The aortic valve is normal in structure and function. Mild aortic regurgitation is present. There is no aortic valvular stenosis. There is no aortic valvular vegetation. MITRAL VALVE The mitral valve is normal in structure and function. There is no evidence of mitral valve prolapse. There is no mitral valve stenosis. There is no mitral valve regurgitation noted. TRICUSPID VALVE The tricuspid valve is normal in structure and function. There is no tricuspid valve regurgitation noted. There is no tricuspid valve prolapse or vegetation. There is no tricuspid valve stenosis. PULMONIC VALVE The pulmonary valve is normal in structure and function. There is no pulmonic valvular regurgitation. There is no pulmonic valvular stenosis. GREAT VESSELS The aortic root is normal in size. The ascending aorta is normal in size. The pulmonary artery is normal. The IVC is normal in size and collapses >50% with inspiration. PERICARDIAL EFFUSION The pericardium appears normal. There is no pleural effusion. <Conclusion> Normal LV EF Mild aortic regurgitation. Thelateral wall of the left atrum is compressed buy an solid external structure, possibly the liver (not the aorta). Consider CT.
--- NOTE | 2017-05-21 23:25 | PN ---
DATE: DAILY PROGRESS NOTE SUBJECTIVE: The patient was seen today on 05/21/2017. She is not in any cardiopulmonary distress. The patient was having an IVC filter placed today and she was continued on Lovenox. PHYSICAL EXAMINATION: VITAL SIGNS: Blood pressure is 143/68, temperature 97.4, respiratory rate 12 and pulse 68. HEENT: Pupils equal, reactive to light. Normal-appearing mucosa of the conjunctivae, oropharyngeal and nasal membrane mucosa. NECK: Supple. No JVD. No carotid bruit. No lymph node. No thyromegaly. CHEST AND LUNGS: Bilateral symmetrical expansion. Good air exchange. No rales. No rhonchi. CARDIOVASCULAR SYSTEM: PMI not localized. S1, S2. No additional sounds. ABDOMEN: Normoactive bowel sounds. No tenderness. No organomegaly. No masses. EXTREMITIES: No cyanosis, no clubbing, no edema. Right lower extremity is in cast. 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 No neurological deficit could be appreciated. ASSESSMENT: 1. Status post fall with right patellar fracture. 2. Hypertension. 3. Bilateral pulmonary embolism, status post inferior vena cava placement. PLAN: 1. Follow Orthopedic recommendations regarding weightbearing and ambulation. 2. Continue Lovenox. 3. Continue current medications. Rabia Eduardo MD
[2017-05-21] MEDS ORDERED: guaiFENesin 100 mg/5 ml Syrup UD PO ONE (23:40)
[2017-05-22 08:01] LABS: BASO # 0.1 K/uL (0.0-0.2); BASO % 1.2 % (0.0-2.0); EOS # 0.2 K/uL (0.0-0.7); EOS % 3.8 % (0.0-4.0); HEMOGLOBIN 10.5 g/dL (11.0-16.0); LYMPH # 0.8 K/uL (1.0-4.3); LYMPH % 17.5 % (20.0-40.0); MEAN CELL VOLUME 78.3 fL (81.0-99.0); MEAN CORPUSCULAR HEMOGLOBIN 25.9 pg (27.0-31.0); MEAN CORPUSCULAR HGB CONC 33.1 g/dL (33.0-37.0); MEAN PLATELET VOLUME 8.5 fL (7.2-11.7); MONO # 0.5 K/uL (0.0-0.8); MONO % 11.1 % (0.0-10.0); NEUT % 66.4 % (50.0-75.0); RBC 4.07 Mil/uL (3.80-5.20); RED CELL DISTRIBUTION WIDTH 16.3 % (11.5-14.5); WHITE BLOOD COUNT 4.5 K/uL (4.8-10.8)
[2017-05-22 08:16] LABS: BLOOD UREA NITROGEN 13 mg/dL (7-17); CALCIUM 8.3 mg/dl (8.6-10.4); GFR AFRICAN-AMERICAN > 60; GFR NON-AFRICAN AMERICAN > 60
[2017-05-22] MEDS: Pantoprazole 40 mg EC Tab PO SCH (10:14)
[2017-05-22] MEDS: Enoxaparin 80 mg Syringe SC SCH ×2 (10:15→21:45)
[2017-05-22] MEDS: Tramadol 25 mg PO PRN (10:42)
--- NOTE | 2017-05-22 12:28 | CP.PCM.PN ---
Subjective - Date & Time of Evaluation Date of Evaluation: 05/22/17 Time of Evaluation: 06:50 - Subjective Subjective: Vascular Surger Dr. Lopez Pt S&E @bedside. Pt underwent IVC filter placement. Pt tolerated the procedure well. NAEO. Pt has no complaints this morning. denies pain at incision site. Objective - Vital Signs/Intake and Output Vital Signs (last 24 hours): Temp Pulse Resp BP Pulse Ox 98.1 F 65 20 150/69 94 L 05/22/17 09:20 05/22/17 09:20 05/22/17 09:20 05/22/17 09:20 05/22/17 09:20 Intake and Output: 05/22/17 05/22/17 06:59 18:59 Intake Total 540 Balance 540 - Medications Medications: Current Medications Acetaminophen (Tylenol 325mg Tab) 650 mg PO Q6 PRN PRN Reason: Headache Bisoprolol Fumarate (Zebeta) 5 mg PO DAILY [facility] Last Admin: 05/22/17 10:15 Dose: 5 mg Dicyclomine HCl (Bentyl) 20 mg PO DAILY [facility] Last Admin: 05/22/17 10:15 Dose: 20 mg Docusate Sodium (Colace) 100 mg PO TID [facility] Last Admin: 05/22/17 10:14 Dose: 100 mg Ezetimibe (Zetia) 10 mg PO DAILY [facility] Last Admin: 05/22/17 10:15 Dose: 10 mg Enoxaparin Sodium (Lovenox) 80 mg SC Q12 [facility] Last Admin: 05/22/17 10:15 Dose: 80 mg Home Med (Creon Dr 24,000 Units Capsule) 24,000 units PO BID [facility] Pantoprazole Sodium (Protonix Ec Tab) 40 mg PO DAILY [facility] Last Admin: 05/22/17 10:14 Dose: 40 mg Paroxetine HCl (Paxil Cr) 25 mg PO DAILY [facility] Last Admin: 05/22/17 10:15 Dose: 25 mg Rosuvastatin Calcium (Crestor) 5 mg PO HS [facility] Last Admin: 05/21/17 21:41 Dose: 5 mg Tramadol HCl (Ultram) 25 mg PO Q6H PRN PRN Reason: Pain, moderate (4-7) Last Admin: 05/22/17 10:42 Dose: 25 mg - Labs Labs: 05/22/17 07:51 05/22/17 07:51 PT 11.9 SECONDS (9.7-12.2) 05/18/17 17:41 INR 1.1 05/18/17 17:41 APTT 27 SECONDS (21-34) 05/18/17 17:41 - Constitutional Appears: Non-toxic, No Acute Distress - Head Exam Head Exam: NORMAL INSPECTION - Eye Exam Eye Exam: Normal appearance - ENT Exam ENT Exam: Mucous Membranes Moist - Respiratory Exam Respiratory Exam: NORMAL BREATHING PATTERN. absent: Accessory Muscle Use, Respiratory Distress - GI/Abdominal Exam GI & Abdominal Exam: Soft. absent: Distended, Tenderness - Exam Additional comments: groin dressing c/d/i - Extremities Exam Extremities Exam: Normal Inspection - Neurological Exam Neurological Exam: Alert, Awake, Oriented x3 - Psychiatric Exam Psychiatric exam: Normal Affect, Normal Mood - Skin Skin Exam: Dry, Intact, Normal Color, Warm Assessment and Plan - Assessment and Plan (Free Text) Assessment: 82 y/o F POF#1 s/p IVC filter placement for R pulmonary embolism s/p R leg injury - pain management - encourage OOB to chair/Amb - cont medical management - pt cleared from surgical standpoint - please reconsult if needed Pt discussed w/ Dr. John Wolfe DO [id number]
--- NOTE | 2017-05-22 16:58 | PN ---
DATE: DAILY PROGRESS NOTE SUBJECTIVE: The patient is seen today, 05/22/2017. She is not in any cardiopulmonary distress. The patient has been on Lovenox 80 mg twice a day. PHYSICAL EXAMINATION: VITAL SIGNS: Blood pressure 150/69, temperature 98.1, respiratory rate 20 and pulse 65. HEENT: Pupils equal and reactive to light. Normal-appearing mucosa of the conjunctivae, oropharyngeal and nasal membrane mucosa. NECK: Supple. No JVD, no carotid bruit, no lymph node, no thyromegaly. CHEST AND LUNGS: Bilateral symmetrical expansion. Good air exchange. No rales, no rhonchi. CARDIOVASCULAR SYSTEM: PMI not localized. S1, S2. No additional sounds. ABDOMEN: Normoactive bowel sounds. No tenderness, no organomegaly, no masses. EXTREMITIES: No cyanosis, no clubbing, no edema. CENTRAL NERVOUS SYSTEM: Alert, awake, oriented x2. No neurological deficit could be appreciated. ASSESSMENT: 1. Pulmonary embolism. 2. Status post fall with fracture of the right patella, currently on a cast. 3. Hypertension. 4. History of small-cell lymphoma, on chemotherapy. PLAN: Continue current anticoagulants and monitor hemoglobin and hematocrit. Discussed the patient's condition with Dr. Carpenter, Orthopedics who recommended patient to have full weightbearing. We will teach patient how to inject Lovenox and plan to discharge home with the family. Rabia Eduardo MD
[2017-05-23] MEDS: Pantoprazole 40 mg EC Tab PO SCH (11:00)
[2017-05-23] MEDS: Enoxaparin 80 mg Syringe SC SCH ×2 (11:01→22:18)
--- NOTE | 2017-05-24 09:21 | CP.PCM.CON ---
History of Present Illness - History of Present Illness History of Present Illness: 82 yo Female know to me, fell 2 weeks previously, seen in office. RLE + comminuted patella fracture, underlying DJD. LLE: + contusions, meniscus tears, synovitis. Admitted to ICU 05/19/17 w/ + PE. Past Patient History - Infectious Disease Hx of Infectious Diseases: None - Past Medical History & Family History Past Medical History?: Yes - Past Social History Smoking Status: Never Smoked - CARDIAC Hx Cardiac Disorders: Yes Hx Hypercholesterolemia: Yes Hx Hypertension: Yes - PULMONARY Hx Respiratory Disorders: No - NEUROLOGICAL Hx Neurological Disorder: No - HEENT Hx HEENT Problems: No - RENAL Hx Chronic Kidney Disease: No - ENDOCRINE/METABOLIC Hx Endocrine Disorders: Yes Other/Comment: THYROID NODULE - HEMATOLOGICAL/ONCOLOGICAL Hx Blood Disorders: Yes Hx Cancer: Yes (LYMPHOMA,stomach cancer) Hx Chemotherapy: Yes Other/Comment: stomach CA currently on chemo tharapy 01/2017 - INTEGUMENTARY Hx Dermatological Problems: No - MUSCULOSKELETAL/RHEUMATOLOGICAL Hx Arthritis: Yes (JOINT PAINS) - GASTROINTESTINAL Hx Gastrointestinal Disorders: Yes Hx Gastroesophageal Reflux: Yes - GENITOURINARY/GYNECOLOGICAL Hx Genitourinary Disorders: No - PSYCHIATRIC Hx Psychophysiologic Disorder: Yes Hx Anxiety: Yes Hx Depression: Yes Hx Substance Use: No - SURGICAL HISTORY Hx Surgeries: Yes Hx Orthopedic Surgery: Yes (with right leg cast) - ANESTHESIA Hx Anesthesia: Yes Hx Anesthesia Reactions: No Hx Malignant Hyperthermia: No Has any member of the family had a problem w/ anesthesia?: No Meds Allergies/Adverse Reactions: Allergies Allergy/AdvReac Type Severity Reaction Status Date / Time No Known Allergies Allergy Verified 05/18/17 16:44 - Medications Medications: Current Medications Acetaminophen (Tylenol 325mg Tab) 650 mg PO Q6 PRN PRN Reason: Headache Bisoprolol Fumarate (Zebeta) 5 mg PO DAILY [facility] [place] Last Admin: 05/23/17 11:00 Dose: 5 mg Dicyclomine HCl (Bentyl) 20 mg PO DAILY [facility] Last Admin: 05/23/17 11:00 Dose: 20 mg Docusate Sodium (Colace) 100 mg PO TID [facility] [place] Last Admin: 05/23/17 19:05 Dose: 100 mg Ezetimibe (Zetia) 10 mg PO DAILY [facility] [place] Last Admin: 05/23/17 11:00 Dose: 10 mg Enoxaparin Sodium (Lovenox) 80 mg SC Q12 [facility] [place] Last Admin: 05/23/17 22:18 Dose: 80 mg Home Med (Creon Dr 24,000 Units Capsule) 24,000 units PO BID [facility] [place] Pantoprazole Sodium (Protonix Ec Tab) 40 mg PO DAILY [facility] Last Admin: 05/23/17 11:00 Dose: 40 mg Paroxetine HCl (Paxil Cr) 25 mg PO DAILY [facility] [place] Last Admin: 05/23/17 11:00 Dose: 25 mg Rosuvastatin Calcium (Crestor) 5 mg PO HS [facility] Last Admin: 05/23/17 22:18 Dose: 5 mg Tramadol HCl (Ultram) 25 mg PO Q6H PRN PRN Reason: Pain, moderate (4-7) Last Admin: 05/22/17 10:42 Dose: 25 mg Results - Vital Signs Recent Vital Signs: Last Vital Signs Temp 97.7 F 05/24/17 08:15 Pulse 74 05/24/17 08:15 Resp 20 05/24/17 08:15 BP 128/75 05/24/17 08:15 Pulse Ox 94 L 05/24/17 08:15 - Labs Result Diagrams: 05/22/17 07:51 05/22/17 07:51 Assessment & Plan (1) Patella fracture Assessment and Plan: 82 yo female, admitted to 05/18/17 w/ PE. R knee: + comminuted displaced patella fracture L knee: + patella contusion, meniscus tears, synovitis Plan: RLE: -treated in cylinder cast -WBAT -f/u in office for cast removal in 2 weeks as outpt LLE: -treated in neoprene hinged knee brace -WBAT w/ brace on -f/u in office for re-evaluation possible injections -physical therapy= B/L LE WBAT, ambulation, OOB PE: -stable -treated with IVC filter and Lovenox tx dosing -tx per medical team will follow please contact me with any questions, concerns, updates [phone] Cassandra Carpenter MD Orthopedic surgery Status: Acute
[2017-05-24] MEDS: Enoxaparin 80 mg Syringe SC SCH ×2 (10:12→22:00)
[2017-05-24] MEDS: Pantoprazole 40 mg EC Tab PO SCH (10:12)
[2017-05-24] MEDS: Tramadol 25 mg PO PRN (11:55)
[2017-05-24] MEDS ORDERED: guaiFENesin 200 mg/10 ml Syrup UD PO PRN (12:25)
--- NOTE | 2017-05-24 13:05 | CP.PCM.PN ---
Subjective - Date & Time of Evaluation Date of Evaluation: 05/24/17 Time of Evaluation: 13:02 - Subjective Subjective: Patient with daughter at bedside. Complaining of right knee pain, but controlled. denies numbess and tingling Objective - Vital Signs/Intake and Output Vital Signs (last 24 hours): Temp Pulse Resp BP Pulse Ox 97.7 F 74 20 128/75 94 L 05/24/17 08:15 05/24/17 08:15 05/24/17 08:15 05/24/17 08:15 05/24/17 08:15 Intake and Output: 05/24/17 05/24/17 06:59 18:59 Intake Total 470 Balance 470 - Medications Medications: Current Medications Acetaminophen (Tylenol 325mg Tab) 650 mg PO Q6 PRN PRN Reason: Headache Bisoprolol Fumarate (Zebeta) 5 mg PO DAILY [facility] Last Admin: 05/24/17 10:13 Dose: 5 mg Dicyclomine HCl (Bentyl) 20 mg PO DAILY [facility] Last Admin: 05/24/17 10:13 Dose: 20 mg Docusate Sodium (Colace) 100 mg PO TID [facility] Last Admin: 05/24/17 10:13 Dose: 100 mg Ezetimibe (Zetia) 10 mg PO DAILY [facility] Last Admin: 05/24/17 10:13 Dose: 10 mg Enoxaparin Sodium (Lovenox) 80 mg SC Q12 [facility] Last Admin: 05/24/17 10:12 Dose: 80 mg Guaifenesin (Robitussin) 200 mg PO Q4H PRN PRN Reason: Cough and congestion Home Med (Creon Dr 24,000 Units Capsule) 24,000 units PO BID [facility] Pantoprazole Sodium (Protonix Ec Tab) 40 mg PO DAILY [facility] Last Admin: 05/24/17 10:12 Dose: 40 mg Paroxetine HCl (Paxil Cr) 25 mg PO DAILY [facility] Last Admin: 05/24/17 10:13 Dose: 25 mg Rosuvastatin Calcium (Crestor) 5 mg PO HS [facility] Last Admin: 05/23/17 22:18 Dose: 5 mg Tramadol HCl (Ultram) 25 mg PO Q6H PRN PRN Reason: Pain, moderate (4-7) Last Admin: 05/24/17 11:55 Dose: 25 mg - Labs Labs: 05/22/17 07:51 05/22/17 07:51 PT 11.9 SECONDS (9.7-12.2) 05/18/17 17:41 INR 1.1 05/18/17 17:41 APTT 27 SECONDS (21-34) 05/18/17 17:41 - Constitutional Appears: Well, No Acute Distress - Head Exam Head Exam: ATRAUMATIC - Extremities Exam Additional comments: RLE cast intact, in good repair LLE knee brace intact left calf soft NT neg homans +DP pulses sensation intact BLE - Neurological Exam Neurological Exam: Alert, Awake, Oriented x3 Neuro motor strength exam: Left Lower Extremity: 5, Right Lower Extremity: 5 ( ankle DF/PF, toes flex/ext) - Psychiatric Exam Psychiatric exam: Normal Affect, Normal Mood - Skin Skin Exam: Dry, Intact, Normal Color, Warm Assessment and Plan (1) Right patella fracture Assessment & Plan: comminuted non operative tx in long leg cast as per Dr. Carpenter WBAT PT/OT Status: Acute (2) Derangement of medial meniscus of left knee Assessment & Plan: brace WBAT f/u as outpatient Dr. Carpenter office 2 weeks Status: Acute (3) Pulmonary embolism Assessment & Plan: s/p IVCF / tx as per medical team Status: Acute
--- NOTE | 2017-05-25 03:30 | PN ---
DATE: 05/24/2017 SUBJECTIVE: The patient is seen today, 05/24/2017. She is not in any cardiopulmonary distress. OBJECTIVE: VITAL SIGNS: Blood pressure 128/75, temperature 97.7, respiratory rate 20 and pulse 90. HEENT: Pupils equal and reactive to light. Normal-appearing mucosa of the conjunctivae, oropharynx and nasal membrane mucosa. NECK: Supple. No JVD, no carotid bruit, no lymph node, no thyromegaly. CHEST AND LUNGS: Bilateral symmetrical expansion. Good air exchange. No rales, no rhonchi. CARDIOVASCULAR SYSTEM: PMI not localized. S1, S2. No additional sounds. ABDOMEN: Normoactive bowel sounds. No tenderness, no organomegaly, no masses. EXTREMITIES: No cyanosis, no clubbing, no edema. CENTRAL NERVOUS SYSTEM: Alert, awake, oriented x3. No neurological deficit could be appreciated. ASSESSMENT: 1. Right patellar fracture, currently on cast. 2. Hypertension. 3. Osteoarthritis. 4. Pulmonary embolism. PLAN: We ordered Lovenox 80 mg every 12 hours. Advance authorization. Medicine will be authorized. The patient will be discharged on this medication to continue for another week. Rabia Eduardo MD
[2017-05-25 06:57] LABS: BASO % 0.8 % (0.0-2.0); EOS # 0.2 K/uL (0.0-0.7); EOS % 4.8 % (0.0-4.0); HEMOGLOBIN 10.2 g/dL (11.0-16.0); LYMPH # 0.9 K/uL (1.0-4.3); LYMPH % 20.3 % (20.0-40.0); MEAN CELL VOLUME 79.4 fL (81.0-99.0); MEAN CORPUSCULAR HEMOGLOBIN 26.1 pg (27.0-31.0); MEAN CORPUSCULAR HGB CONC 32.8 g/dL (33.0-37.0); MEAN PLATELET VOLUME 8.1 fL (7.2-11.7); MONO # 0.5 K/uL (0.0-0.8); MONO % 11.4 % (0.0-10.0); NEUT # 2.8 K/uL (1.8-7.0); NEUT % 62.7 % (50.0-75.0); RBC 3.91 Mil/uL (3.80-5.20); WHITE BLOOD COUNT 4.4 K/uL (4.8-10.8)
[2017-05-25 08:17] LABS: BLOOD UREA NITROGEN 17 mg/dL (7-17); CALCIUM 8.3 mg/dl (8.6-10.4); GFR AFRICAN-AMERICAN > 60; GFR NON-AFRICAN AMERICAN > 60
[2017-05-25] MEDS: Pantoprazole 40 mg EC Tab PO SCH (09:25)
[2017-05-25] MEDS: Enoxaparin 80 mg Syringe SC SCH ×2 (11:00→21:41)
[2017-05-25] MEDS: LIPASE/PROTEASE/AMYLASE 4,200 U ECC PO SCH ×2 (14:01→17:28)
--- NOTE | 2017-05-26 01:10 | PN ---
DATE: 05/25/2017 SUBJECTIVE: Patient is seen today on 05/25/2017. She is not in any cardiopulmonary distress. PHYSICAL EXAMINATION: VITAL SIGNS: With blood pressure 125/58, temperature 97.9, respiratory rate 20, and pulse 73. HEENT: Pupils equal, reactive to light. Normal-appearing mucosa of the conjunctivae, oropharynx, and nasal membrane mucosa. NECK: Supple. No JVD. No carotid bruit. No lymph node. No thyromegaly. CHEST AND LUNGS: Bilateral symmetrical expansion. Good air exchange. No rales, no rhonchi. CARDIOVASCULAR SYSTEM: PMI not localized. S1 and S2. No additional sounds. ABDOMEN: Normoactive bowel sounds. No tenderness. No organomegaly. No masses. EXTREMITIES: No cyanosis, no clubbing, no edema. CENTRAL NERVOUS SYSTEM: Alert, awake, oriented x2. No neurological deficit could be appreciated. ASSESSMENT: 1. Status post fall with fracture of right patella, currently in cast. 2. Pulmonary embolism. 3. Hypertension. 4. Osteoarthritis. PLAN: Continue current medications and physical therapy and we will authorize the Lovenox and plan to discharge. Rabia Eduardo MD
[2017-05-26 08:27] VITALS: PULSE 70
[2017-05-26] MEDS: LIPASE/PROTEASE/AMYLASE 4,200 U ECC PO SCH ×2 (09:48→13:15)
[2017-05-26] MEDS: Pantoprazole 40 mg EC Tab PO SCH (09:49)
[2017-05-26] MEDS: Enoxaparin 80 mg Syringe SC SCH (09:49)
--- NOTE | 2017-05-26 12:27 | CP.PCM.PN ---
Subjective - Date & Time of Evaluation Date of Evaluation: 05/26/17 Time of Evaluation: 11:30 - Subjective Subjective: Patient seen today , awake, alert, denies any chest pain, sob, palpitations, dizziness , no overnight events reported by RN Objective - Vital Signs/Intake and Output Vital Signs (last 24 hours): Temp Pulse Resp BP Pulse Ox 98.3 F 70 20 148/74 97 05/26/17 07:00 05/26/17 07:00 05/26/17 07:00 05/26/17 07:00 05/26/17 07:00 - Medications Medications: Current Medications Acetaminophen (Tylenol 325mg Tab) 650 mg PO Q6 PRN PRN Reason: Headache Bisoprolol Fumarate (Zebeta) 5 mg PO DAILY [facility] Last Admin: 05/26/17 10:11 Dose: 5 mg Dicyclomine HCl (Bentyl) 20 mg PO DAILY [facility] Last Admin: 05/26/17 10:11 Dose: 20 mg Docusate Sodium (Colace) 100 mg PO TID [facility] Last Admin: 05/26/17 09:49 Dose: 100 mg Ezetimibe (Zetia) 10 mg PO DAILY [facility] Last Admin: 05/26/17 10:11 Dose: 10 mg Enoxaparin Sodium (Lovenox) 80 mg SC Q12 [facility] Last Admin: 05/26/17 09:49 Dose: 80 mg Guaifenesin (Robitussin) 200 mg PO Q4H PRN PRN Reason: Cough and congestion Last Admin: 05/24/17 14:05 Dose: 200 mg Pantoprazole Sodium (Protonix Ec Tab) 40 mg PO DAILY [facility] Last Admin: 05/26/17 09:49 Dose: 40 mg Paroxetine HCl (Paxil Cr) 25 mg PO DAILY [facility] Last Admin: 05/26/17 10:10 Dose: 25 mg Rosuvastatin Calcium (Crestor) 5 mg PO HS [facility] Last Admin: 05/25/17 21:41 Dose: 5 mg Tramadol HCl (Ultram) 25 mg PO Q6H PRN PRN Reason: Pain, moderate (4-7) Last Admin: 05/24/17 11:55 Dose: 25 mg - Labs Labs: 05/25/17 06:45 05/25/17 06:45 PT 11.9 SECONDS (9.7-12.2) 05/18/17 17:41 INR 1.1 05/18/17 17:41 APTT 27 SECONDS (21-34) 05/18/17 17:41 - Constitutional Appears: Well, No Acute Distress - Respiratory Exam Respiratory Exam: Clear to Ausculation Bilateral, NORMAL BREATHING PATTERN - Cardiovascular Exam Cardiovascular Exam: REGULAR RHYTHM, +S1, +S2 - Extremities Exam Extremities Exam: Joint Swelling (Cast to the R LE and knee immobiliser to Left knee) - Neurological Exam Neurological Exam: Alert, Awake, Oriented x3 Assessment and Plan - Assessment and Plan (Free Text) Assessment: A/P 82 Yr old female with pmhx of Arthritis (JOINT PAINS), Depression, Fractures ( right lower extremity), HTN, Hypercholesterolemia, Malignancy (Lymphoma (last chemo 1 year admitted with PE Patient started on lovenox s/p IVC filter Patient accepted at [facility] for rehab and family and patient in agreement D/W Dr. Eduardo stable for discharge to [facility] and Dr. Eduardo will follow the patient at [facility]
[2017-05-26 16:06] VITALS: BP 123/73; RESP 18; TEMP 98.1; O2SAT 98
--- NOTE | 2017-05-28 13:59 | DS ---
REASON FOR ADMISSION: This is an 82-year-old [place] female with history of multiple medical problems who was admitted for bilateral pulmonary embolism. COURSE OF HOSPITALIZATION: Patient was admitted to medical floor and she was started on Lovenox 1 mg/kg q.12 hours. Patient had an Orthopedic consult done by Dr. Carpenter. Patient also had an IVC filter placed by Dr. Ramirez. Patient did well and she tolerated Lovenox and she was discharged to subacute rehabilitation after starting physical therapy. ASSESSMENT: Bilateral pulmonary embolism; status post fall with fracture right patella, currently patient has a cast; hypertension; small cell lymphoma, on chemotherapy. [facility] MD Jayce
== END 2017-05-26 18:24 | DRG 167 ==
LOC: C.ER 16:21 → C.9E 22:13 → C.9I 22:44 → C.6T 05-19 21:41
PROVIDERS: ADMIT Internal Medicine; ATTEND Internal Medicine
PROC: 06H03DZ Insertion of Intraluminal Device into Inferior Vena Cava, Percutaneous Approach (ICD-10-PCS; principal; 2017-05-18)
DX: I26.99 Other pulmonary embolism without acute cor pulmonale (principal); C85.90 Non-Hodgkin lymphoma, unspecified, unspecified site; D63.8 Anemia in other chronic diseases classified elsewhere; E78.5 Hyperlipidemia, unspecified; I10 Essential (primary) hypertension; M19.90 Unspecified osteoarthritis, unspecified site; Z91.81 History of falling; M65.9 Synovitis and tenosynovitis, unspecified; F32.89 Other specified depressive episodes; S82.041D Displaced comminuted fracture of right patella, subsequent encounter for closed fracture with routine healing; W19.XXXD Unspecified fall, subsequent encounter

== ENCOUNTER 2017-06-02 14:39 | Observation (INO) | payer MEDICARE, MEDICAID ==
[2017-06-02 14:39] VITALS: BMI 28.1
[2017-06-02 15:50] LABS: BASO % 0.3 % (0.0-2.0); EOS # 0.1 K/uL (0.0-0.7); EOS % 3.6 % (0.0-4.0); HEMOGLOBIN 10.5 g/dL (11.0-16.0); LYMPH % 30.5 % (20.0-40.0); MEAN CORPUSCULAR HEMOGLOBIN 25.9 pg (27.0-31.0); MEAN CORPUSCULAR HGB CONC 32.8 g/dL (33.0-37.0); MONO # 0.4 K/uL (0.0-0.8); MONO % 10.8 % (0.0-10.0); NEUT # 1.9 K/uL (1.8-7.0); NEUT % 54.8 % (50.0-75.0); RBC 4.07 Mil/uL (3.80-5.20); RED CELL DISTRIBUTION WIDTH 16.8 % (11.5-14.5); WHITE BLOOD COUNT 3.4 K/uL (4.8-10.8)
--- NOTE | 2017-06-02 15:55 | C.PDOC ---
History Of Present Illness 82 y/o female, with daughter, presents to the ER complaining of bleeding in her right leg. Daughter states that her mother fell 3 months ago and she broke her right leg. She came to [facility] ER and she was casted and evaluted by Orthopedics. Daughter reports that she had chest pain several weeks later and she brought her mother to [facility] ER. she was diagnosed with a PE and had an IVC filter inserted. She has been on Lovenox daily. Daughter states that she had spontaneous bleeding last night from the catherization site and they applied pressure on the area. Her last Lovenox injection was last night. Daughter reports that the bleeding appears to be controlled now.Of noted, daughter translated for patient because patient speaks Tajik. Time Seen by Provider: 06/02/17 15:15 Chief Complaint (Nursing): Abnormal Skin Integrity History Per: Family (Daughter) History/Exam Limitations: no limitations Onset/Duration Of Symptoms: Days Severity: Moderate Past Medical History Reviewed: Historical Data, Nursing Documentation, Vital Signs Vital Signs: Last Vital Signs Temp 98.0 F 06/02/17 14:50 Pulse 74 06/02/17 14:50 Resp 20 06/02/17 14:50 BP 114/63 06/02/17 14:50 Pulse Ox 95 06/02/17 16:19 - Medical History PMH: Anxiety, Arthritis (JOINT PAINS), Depression, Fractures (right lower extremity), HTN, Hypercholesterolemia, Malignancy (Lymphoma (last chemo 1 year ago)) Denies: Chronic Kidney Disease Surgical History: No Surg Hx - [facility] Procedures INSERTION OF INTRALUM DEV INTO INF VENA CAVA, PERC APPROACH (05/18/17) PERCUTAN NEEDLE BX OF THYROID GLAND (12/12/14) Family History: States: No Known Family Hx - Social History Hx Tobacco Use: No Hx Alcohol Use: No Hx Substance Use: No - Immunization History Hx Tetanus Toxoid Vaccination: No Hx Influenza Vaccination: No Hx Pneumococcal Vaccination: No Review Of Systems Except As Marked, All Systems Reviewed And Found Negative. Constitutional: Negative for: Fever, Chills Cardiovascular: Negative for: Chest Pain Physical Exam - Physical Exam Appears: Non-toxic, No Acute Distress Skin: Normal Color, Warm Head: Atraumatic, Normacephalic Eye(s): bilateral: Normal Inspection, PERRL Nose: Normal Oral Mucosa: Moist Neck: Supple Chest: Symmetrical Cardiovascular: Rhythm Regular Respiratory: Normal Breath Sounds, No Accessory Muscle Use, No Rales, No Rhonchi , No Wheezing Gastrointestinal/Abdominal: Normal Exam, Soft, No Tenderness Extremity: Normal ROM, Other (cast from proximal thigh to groin in right leg, puncture site visible with large clot, no active bleeding, no expanding/ pulsatile hematoma ) Neurological/Psych: Oriented x3, Normal Speech, Normal Cognition, Normal Motor, Normal Sensation ED Course And Treatment - Laboratory Results Result Diagrams: 06/02/17 15:40 06/02/17 15:40 Lab Interpretation: No Acute Changes O2 Sat by Pulse Oximetry: 95 (RA) Pulse Ox Interpretation: Normal Reevaluation Time: 17:35 Reassessment Condition: Unchanged (Clot remains stable and there is no active bleeding.) - Physician Consult Information Time Consulting Physician Contacted: 17:36 Physician Contacted: Rabia Eduardo Outcome Of Conversation: Patient to be kept in the hospital for observation and evaluation by Dr Ramriez. Medical Decision Making Medical Decision Making: Plan: --Labs Disposition - Disposition Disposition: HOSPITALIZED Disposition Time: 17:39 Condition: STABLE - Clinical Impression Clinical Impression: Bleeding from venipuncture site - Scribe Statement The provider has reviewed the documentation as recorded by the Scribe Saumya Agosto Provider Attestation: All medical record entries made by the Scribe were at my direction and personally dictated by me. I have reviewed the chart and agree that the record accurately reflects my personal performance of the history, physical exam, medical decision making, and the department course for this patient. I have also personally directed, reviewed, and agree with the discharge instructions and disposition.
[2017-06-02 15:57] LABS: PROTHROMBIN TIME 11.5 SECONDS (9.7-12.2)
[2017-06-02 16:06] LABS: ALB/GLOB RATIO 1.3 (1.0-2.1); ALBUMIN 3.8 g/dL (3.5-5.0); ALT/SGPT 38 U/L (9-52); AST/SGOT 35 U/L (14-36); BLOOD UREA NITROGEN 16 mg/dL (7-17); CALCIUM 8.9 mg/dl (8.6-10.4); GFR AFRICAN-AMERICAN > 60; GFR NON-AFRICAN AMERICAN 60
[2017-06-02] MEDS ORDERED: GUAIFENESIN 100 MG PO PRN (22:59)
--- NOTE | 2017-06-02 23:13 | CP.PCM.CON ---
History of Present Illness - History of Present Illness History of Present Illness: Vascular Surgery Consult Note for Dr. Lopez Reason for Consult: s/p IVC filter placement, bleeding from site 80 F with PMH lymphoma s/p chemotherapy presents to [facility] for bleeding from groin site. Patient is s/p IVC filter placement on 05/21. Patient went for procedure due to diagnosis of PE. She fell in late April where she fractured her R patella. She has been immobile because of the injury. Patient was continued on anticoagulation therpay despite IVC filter. Her daughter states that she began to bleed at home. She became worried and decided to bring patient to the hospital. Patient is not currently bleeding. She denies any pain. Denies fever/chills, chest pain, palpitations, SOB, abdominal pain, nausea /vomiting, diarrhea. PMD: Dr. Eduardo 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, hypertension, hyperlipidemia, PE, GERD, R patella fracture Medications: Lovenox, Aspirin, Coreg, Crestor, Lyrica, Paxil, Protonix, Metoprolol Allergies: NKDA Surgical history: IVC filter (05/21/16) FH: unknown Social history: denies tobacco, alcohol, and illicit drug use. Review of Systems - Review of Systems All systems: reviewed and no additional remarkable complaints except (as per HPI ) Past Patient History - Infectious Disease Hx of Infectious Diseases: None - Past Medical History & Family History Past Medical History?: Yes - Past Social History Smoking Status: Never Smoked - CARDIAC Hx Hypercholesterolemia: Yes Hx Hypertension: Yes - PULMONARY Hx Respiratory Disorders: No - NEUROLOGICAL Hx Neurological Disorder: No - HEENT Hx HEENT Problems: No - RENAL Hx Chronic Kidney Disease: No - ENDOCRINE/METABOLIC Hx Endocrine Disorders: Yes Other/Comment: THYROID NODULE - HEMATOLOGICAL/ONCOLOGICAL Hx Blood Disorders: Yes Hx Cancer: Yes (LYMPHOMA,stomach cancer) Hx Chemotherapy: Yes Other/Comment: stomach CA currently on chemo tharapy 01/2017 - INTEGUMENTARY Hx Dermatological Problems: No - MUSCULOSKELETAL/RHEUMATOLOGICAL Hx Arthritis: Yes (JOINT PAINS) Hx Fractures: Yes (right lower extremity) - GASTROINTESTINAL Hx Gastrointestinal Disorders: Yes Hx Gastroesophageal Reflux: Yes - GENITOURINARY/GYNECOLOGICAL Hx Genitourinary Disorders: No - PSYCHIATRIC Hx Anxiety: Yes Hx Depression: Yes Hx Substance Use: No - SURGICAL HISTORY Hx Surgeries: Yes Hx Orthopedic Surgery: Yes (with right leg cast) - ANESTHESIA Hx Anesthesia: Yes Hx Anesthesia Reactions: No Hx Malignant Hyperthermia: No Meds Allergies/Adverse Reactions: Allergies Allergy/AdvReac Type Severity Reaction Status Date / Time No Known Allergies Allergy Verified 06/02/17 14:57 - Medications Medications: Current Medications Acetaminophen (Tylenol 325mg Tab) 650 mg PO Q6 PRN PRN Reason: Headache Bisoprolol Fumarate (Zebeta) 5 mg PO DAILY [facility] Dicyclomine HCl (Bentyl) 20 mg PO DAILY [facility] Docusate Sodium (Colace) 200 mg PO HS [facility] Ezetimibe (Zetia) 10 mg PO DAILY [facility] Home Med (Atorvastatin [Lipitor]) 10 mg PO DAILY [facility] Home Med (Creon Dr 24,000 Units Capsule) 24,000 units PO BID [facility] Home Med (Guaifenesin) 100 mg PO Q4 PRN PRN Reason: Cough Pantoprazole Sodium (Protonix Ec Tab) 40 mg PO DAILY [facility] Paroxetine HCl (Paxil Cr) 25 mg PO DAILY [facility] Physical Exam - Constitutional Appears: No Acute Distress - Head Exam Head Exam: ATRAUMATIC, NORMOCEPHALIC - Eye Exam Eye Exam: EOMI, Normal appearance Pupil Exam: PERRL - ENT Exam ENT Exam: Mucous Membranes Moist - Neck Exam Neck exam: Positive for: Full Rom - Respiratory Exam Respiratory Exam: NORMAL BREATHING PATTERN - Cardiovascular Exam Cardiovascular Exam: REGULAR RHYTHM - GI/Abdominal Exam GI & Abdominal Exam: Normal Bowel Sounds, Soft, Tenderness. absent: Distended, Firm, Guarding, Rebound, Rigid - Extremities Exam Additional comments: RLE: groin site clean/dry/intact, dressing changed, no acute bleeding, no evidence of hematoma, cast on RLE, ecchymosis on lateral hip - Neurological Exam Neurological exam: Alert, CN II-XII Intact, Oriented x3 - Psychiatric Exam Psychiatric exam: Normal Affect, Normal Mood - Skin Skin Exam: Dry, Intact, Warm Results - Vital Signs Recent Vital Signs: Last Vital Signs Temp 97.8 F 06/02/17 17:43 Pulse 67 06/02/17 20:08 Resp 14 06/02/17 20:08 BP 118/60 06/02/17 20:08 Pulse Ox 98 06/02/17 20:08 - Labs Result Diagrams: 06/02/17 15:40 06/02/17 15:40 Labs: Laboratory Results - last 24 hr 06/02/17 06/02/17 06/02/17 15:40 15:40 15:40 WBC 3.4 L RBC 4.07 Hgb 10.5 L Hct 32.2 L MCV 79.0 L MCH 25.9 L MCHC 32.8 L RDW 16.8 H Plt Count 258 MPV 8.0 Neut % (Auto) 54.8 Lymph % (Auto) 30.5 [place] % (Auto) 10.8 H Eos % (Auto) 3.6 Baso % (Auto) 0.3 Neut # 1.9 Lymph # 1.0 [place] # 0.4 Eos # 0.1 Baso # 0.0 PT 11.5 INR 1.0 APTT 27 Sodium 134 Potassium 3.9 Chloride 99 Carbon Dioxide 29 Anion Gap 9 L BUN 16 Creatinine 0.9 Est GFR ( Amer) > 60 Est GFR (Non-Af Amer) 60 Random Glucose 110 H Calcium 8.9 Total Bilirubin 0.2 AST 35 ALT 38 Alkaline Phosphatase 67 Total Protein 6.7 Albumin 3.8 Globulin 2.9 Albumin/Globulin Ratio 1.3 Assessment & Plan - Assessment and Plan (Free Text) Plan: 82 F with PMH of PE s/p IVC filter presents for bleeding from Right groin site -No acute bleeding -Hgb is stable compared to previous admission -Monitor for bleeding and hematoma -Dressing change PRN -Discussed with Dr. John Lawrence PGY1
[2017-06-03 01:06] VITALS: RESP 20
[2017-06-03] MEDS ORDERED: CREON 24000 UNIT PO SCH (10:00)
[2017-06-03] MEDS ORDERED: Home Med 1 UNIT (Atorvastatin [Lipitor] 10 MG) PO SCH (10:00)
[2017-06-03] MEDS: Pantoprazole 40 mg EC Tab PO SCH (10:27)
--- NOTE | 2017-06-03 12:01 | CP.PCM.PN ---
Subjective - Date & Time of Evaluation Date of Evaluation: 06/03/17 Time of Evaluation: 06:35 - Subjective Subjective: Vascular Surgery Pt S&E, NAEO. No bleeding from IVC insertion site at this time. No complaints at this time. Objective - Vital Signs/Intake and Output Vital Signs (last 24 hours): Temp Pulse Resp BP Pulse Ox 97.4 F L 68 20 136/77 94 L 06/03/17 08:49 06/03/17 08:49 06/03/17 08:49 06/03/17 08:49 06/03/17 08:49 - Medications Medications: Current Medications Acetaminophen (Tylenol 325mg Tab) 650 mg PO Q6 PRN PRN Reason: Headache Bisoprolol Fumarate (Zebeta) 5 mg PO DAILY [facility] Last Admin: 06/03/17 10:32 Dose: 5 mg Dicyclomine HCl (Bentyl) 20 mg PO DAILY [facility] Last Admin: 06/03/17 10:27 Dose: 20 mg Docusate Sodium (Colace) 200 mg PO [facility] Ezetimibe (Zetia) 10 mg PO DAILY [facility] Last Admin: 06/03/17 10:27 Dose: 10 mg Home Med (Atorvastatin [Lipitor]) 10 mg PO DAILY [facility] Home Med (Creon Dr 24,000 Units Capsule) 24,000 units PO BID [facility] Home Med (Guaifenesin) 100 mg PO Q4 PRN PRN Reason: Cough Pantoprazole Sodium (Protonix Ec Tab) 40 mg PO DAILY [facility] Last Admin: 06/03/17 10:27 Dose: 40 mg Paroxetine HCl (Paxil Cr) 25 mg PO DAILY [facility] Last Admin: 06/03/17 10:27 Dose: 25 mg - Labs Labs: 06/02/17 15:40 06/02/17 15:40 PT 11.5 SECONDS (9.7-12.2) 06/02/17 15:40 INR 1.0 06/02/17 15:40 APTT 27 SECONDS (21-34) 06/02/17 15:40 - Constitutional Appears: Non-toxic, No Acute Distress - Head Exam Head Exam: ATRAUMATIC, NORMOCEPHALIC - Eye Exam Eye Exam: EOMI. absent: Scleral icterus - Respiratory Exam Respiratory Exam: NORMAL BREATHING PATTERN. absent: Respiratory Distress - GI/Abdominal Exam GI & Abdominal Exam: Soft. absent: Distended, Tenderness - Extremities Exam Additional comments: RLE: No groin hematoma, cast on RLE - Neurological Exam Neurological Exam: Alert, Awake - Skin Skin Exam: Dry, Warm Assessment and Plan - Assessment and Plan (Free Text) Assessment: 82F s/p IVC filter earlier this month Plan: -No acute bleeding seen this admission -Hgb is stable compared to prior hospital stay -Monitor for bleeding/hematoma -Pt was discussed with Dr. John Lin PGY4
[2017-06-03] MEDS: LIPASE/PROTEASE/AMYLASE 4,200 U ECC PO SCH (18:00)
[2017-06-03] MEDS ORDERED: Iodixanol 320 MG/ML 100 ML BOTTLE IV ONE (18:34)
--- NOTE | 2017-06-03 21:31 | CT ---
EXAM: CT Angiography Chest With Intravenous Contrast CLINICAL HISTORY: 82 years old, female; Condition or disease; Other: Pe TECHNIQUE: Axial computed tomographic angiography images of the chest with intravenous contrast using pulmonary embolism protocol. All CT scans at this facility use one or more dose reduction techniques, viz.: automated exposure control; ma/kV adjustment per patient size (including targeted exams where dose is matched to indication; i.e. head); or iterative reconstruction technique. MIP reconstructed images were created and reviewed. Coronal and sagittal reformatted images were created and reviewed. CONTRAST: 100 mL of VISI administered intravenously. COMPARISON: CT - ANGIO CHEST PE PROTOCOL 2017-05-18 20:48 FINDINGS: Limitations: Motion artifact - mild. Pulmonary arteries: No definite pulmonary embolism. Resolution of previously noted emboli. Aorta: [id number] atherosclerotic disease. No aneurysm. Inferior vena cava: IVC filter. Lungs: Mild atelectasis/scarring. Pleural space: No significant effusion. No pneumothorax. Heart: No cardiomegaly. No significant pericardial effusion. Mild coronary artery calcifications. Mediastinum: Large hiatal hernia. Thyroid: Stable appearance of thyroid gland. Bones/joints: Degenerative changes and scoliosis of spine. Soft tissues: Unremarkable. Lymph nodes: No pathologically enlarged lymph nodes. Kidneys and ureters: Few probable renal cysts, incompletely imaged. IMPRESSION: 1. No definite CT evidence of pulmonary embolism. 2. Incidental/non-acute findings are described above.
--- NOTE | 2017-06-04 03:49 | HP ---
HISTORY OF PRESENT ILLNESS: This is an 82-year-old [place] female who was diagnosed with pulmonary embolism on last admission and she was discharged to subacute rehabilitation on Lovenox. Patient was found to be bleeding at the site of IVC filter placement. Patient did not have any previous similar symptoms. Bleeding spontaneously stopped and patient was referred to emergency room for evaluation and admitted for further management. Other review of systems is generalized weakness. Patient also has a cast on the right lower extremity as she had a fall with right patellar fracture. ALLERGIES: NO KNOWN ALLERGY. MEDICATIONS: As per MAR. SOCIAL HISTORY: No history of smoking, EtOH or substance abuse. FAMILY HISTORY: Noncontributory. PAST MEDICAL HISTORY: Lymphoma, hypertension, osteoarthritis, anemia of chronic disease. PHYSICAL EXAMINATION: VITAL SIGNS: Blood pressure is 138/71, temperature 97.8, respiratory rate 20 and pulse 17. HEENT: Pupils equal, reactive to light. Normal-appearing mucosa of the conjunctivae, oropharynx and nasal membrane mucosa. NECK: Supple. No JVD. No carotid bruit. No lymph node. No thyromegaly. CHEST AND LUNGS: Bilateral symmetrical expansion. Good air exchange. No rales, no rhonchi. CARDIOVASCULAR SYSTEM: PMI not localized. S1 and S2. No additional sounds. ABDOMEN: Normoactive bowel sounds. No tenderness. No organomegaly. No masses. EXTREMITIES: No cyanosis, no clubbing, no edema. CENTRAL NERVOUS SYSTEM: Alert, awake, oriented x3. No neurological deficit could be appreciated. ASSESSMENT: 1. Anemia of chronic disease. 2. Bleeding at the site of inferior vena cava filter placement. 3. History of pulmonary embolism. PLAN: We will repeat CT angiogram and if there is no evidence of current pulmonary embolism, we will stop the heparin as patient has already an IVC filter. Discussed patient's condition with Dr. Lopez. Family also requested to have a second orthopedic opinion regarding no surgery or operation for the current patellar fracture. Rabia Eduardo MD
[2017-06-04 07:50] LABS: BASO % 0.9 % (0.0-2.0); EOS # 0.2 K/uL (0.0-0.7); EOS % 5.5 % (0.0-4.0); HEMOGLOBIN 10.6 g/dL (11.0-16.0); LYMPH # 0.9 K/uL (1.0-4.3); LYMPH % 27.9 % (20.0-40.0); MEAN CELL VOLUME 78.9 fL (81.0-99.0); MEAN PLATELET VOLUME 8.4 fL (7.2-11.7); MONO # 0.4 K/uL (0.0-0.8); MONO % 13.4 % (0.0-10.0); NEUT # 1.7 K/uL (1.8-7.0); NEUT % 52.3 % (50.0-75.0); NRBC % 0.1 % (0.0-2.0); RBC 4.06 Mil/uL (3.80-5.20); RED CELL DISTRIBUTION WIDTH 16.9 % (11.5-14.5); WHITE BLOOD COUNT 3.3 K/uL (4.8-10.8)
[2017-06-04] MEDS: Pantoprazole 40 mg EC Tab PO SCH (09:57)
[2017-06-04] MEDS: LIPASE/PROTEASE/AMYLASE 4,200 U ECC PO SCH ×2 (09:59→18:54)
--- NOTE | 2017-06-04 10:10 | CT ---
PROCEDURE: CT of the Right Knee without contrast. HISTORY: f/u patellar fx COMPARISON: Right knee radiographs 06/04/2017. TECHNIQUE: Contiguous axial images of the right knee were obtained. Coronal and sagittal and axial reformats were generated. Total radiation D LP: 356.08 mGy-cm. This CT exam was performed using one or more of the following dose reduction techniques: Automated exposure control, adjustment of the mA and/or kV according to patient size, and/or use of iterative reconstruction technique. FINDINGS: BONES: A comminuted, articular fracture of the right patella is identified with the major fracture fragments appearing largely nondisplaced. A lateral right patellar fracture fragment is minimally displaced anteriorly by approximately 2 mm. No subluxation or dislocation of the patella is appreciated as well as the tibia. No fracture of the visualized femur and proximal tibia is identified. A mild suprapatellar bursa effusion is identified without fat fluid level. Moderate local soft tissue edema changes are appreciated surrounding the right knee but predominantly anterior in location. Advanced degenerative joint disease appreciated primarily at the medial femorotibial compartment with the lateral femorotibial compartment and patellofemoral articulation mildly less involved. No destructive bony lesion appreciated. A cast is noted placed surrounding the entire knee. SOFT TISSUES: As above. IMPRESSION: Comminuted articular fracture of the right patella is appreciated without dislocation or subluxation. Advanced degenerative joint disease, with medial femorotibial compartment seen worst affected.
--- NOTE | 2017-06-04 12:28 | CP.PCM.PN ---
Subjective - Date & Time of Evaluation Date of Evaluation: 06/04/17 Time of Evaluation: 07:00 - Subjective Subjective: Vascular Surgery Note for Dr. Lopez Patient seen and examined at bed side. No acute event overnight. No evidence of bleeding. Patient has no complaints. Objective - Vital Signs/Intake and Output Vital Signs (last 24 hours): Temp Pulse Resp BP Pulse Ox 98.0 F 71 20 145/79 94 L 06/04/17 08:41 06/04/17 08:41 06/04/17 08:41 06/04/17 08:41 06/04/17 08:41 Intake and Output: 06/04/17 06/04/17 06:59 18:59 Intake Total 10 Balance 10 - Medications Medications: Current Medications Acetaminophen (Tylenol 325mg Tab) 650 mg PO Q6 PRN PRN Reason: Headache Last Admin: 06/04/17 10:03 Dose: 650 mg Bisoprolol Fumarate (Zebeta) 5 mg PO DAILY [facility] Last Admin: 06/04/17 10:00 Dose: 5 mg Dicyclomine HCl (Bentyl) 20 mg PO DAILY [facility] Last Admin: 06/04/17 10:01 Dose: 20 mg Docusate Sodium (Colace) 200 mg PO HS [facility] Last Admin: 06/03/17 22:14 Dose: 200 mg Ezetimibe (Zetia) 10 mg PO DAILY [facility] Last Admin: 06/04/17 10:16 Dose: 10 mg Pantoprazole Sodium (Protonix Ec Tab) 40 mg PO DAILY [facility] Last Admin: 06/04/17 09:57 Dose: 40 mg Paroxetine HCl (Paxil Cr) 25 mg PO DAILY [facility] Last Admin: 06/04/17 10:00 Dose: 25 mg Rosuvastatin Calcium (Crestor) 5 mg PO HS [facility] Last Admin: 06/03/17 22:14 Dose: 5 mg - Labs Labs: 06/04/17 07:38 06/02/17 15:40 PT 11.5 SECONDS (9.7-12.2) 06/02/17 15:40 INR 1.0 06/02/17 15:40 APTT 27 SECONDS (21-34) 06/02/17 15:40 - Constitutional Appears: No Acute Distress - Head Exam Head Exam: ATRAUMATIC, NORMOCEPHALIC - Eye Exam Eye Exam: Normal appearance - ENT Exam ENT Exam: Mucous Membranes Moist - Respiratory Exam Respiratory Exam: NORMAL BREATHING PATTERN - Cardiovascular Exam Cardiovascular Exam: REGULAR RHYTHM - GI/Abdominal Exam GI & Abdominal Exam: Soft, Normal Bowel Sounds. absent: Tenderness - Extremities Exam Additional comments: RLE: No evidence of bleeding or hematoma in right groin, cast on RLE - Neurological Exam Neurological Exam: Alert, Awake, Oriented x3 - Psychiatric Exam Psychiatric exam: Normal Affect, Normal Mood - Skin Skin Exam: Dry, Intact, Normal Color, Warm Assessment and Plan - Assessment and Plan (Free Text) Plan: 82F s/p IVC filter 2 weeks ago -No acute bleeding seen this admission -Hgb is stable -Monitor for bleeding/hematoma -Discussed with Dr. John Lawrence PGY1
--- NOTE | 2017-06-04 13:47 | CON ---
DATE: 06/04/2017 INPATIENT CONSULTATION REASON FOR CONSULT: Right patellar fracture, second opinion. Consult is as follows; HISTORY OF PRESENT ILLNESS: This is an 82-year-old female who on 05/10/2017 had a fall injuring the right knee. The patient was seen by another orthopedic surgeon with diagnosis of patellar fracture and was treated with cast immobilization. At this point, according to the patient and the patient's daughter, she is followed up with the doctor in his office, who cut her out of the cast and then placed her back in a long leg cast, but also recommended surgery. According to the daughter, they were not sure how to proceed and subsequently requested a second opinion on this admission. The patient is currently again admitted for pulmonary embolism. The patient is status post IVC filter. PHYSICAL EXAMINATION: GENERAL: This is an elderly female, in no apparent distress. She is awake, alert and oriented. EXTREMITIES: Evaluation of the right lower extremity, the patient is in a right cylinder cast. Grossly, she is neurovascularly intact. She has palpable pulses. The right lower extremity cast was removed. Her skin is intact. There is minimal swelling about the fracture site. Some mild tenderness to palpation over the patella with compression. The patient is able to do a straight leg raise without any difficulty. Her thigh and calves are soft and nontender. LABORATORY DATA: I reviewed x-rays and a CAT scan, which showed a comminuted patellar fracture with some displacement. No obvious callus formation is appreciated. There is an intraarticular step-off. No bony fragments are appreciated in the joint, however. ASSESSMENT: I had a lengthy discussion with the daughter and the patient. Given that it has already been 4 weeks and that her extensive mechanism is working, I recommended that we continue with cast immobilization for an additional two and a half weeks. At that time, recommendations would be to cut her out of the cast, repeat the x-rays and convert her to a hinged knee brace and begin outpatient physical therapy for her. They are in agreement with this. For now, the long leg cast was reapplied. We will let her weight-bear as tolerated on the right lower extremity. I will see her back. She will follow up in the office in 2.5 weeks. Louis Bob MD
--- NOTE | 2017-06-04 15:44 | RAD ---
PROCEDURE: Right Knee Radiographs. HISTORY: s/u patellar fx COMPARISON: CT right knee dated 05/20/2017. FINDINGS: Right lower extremity cast again limits evaluation of fine bony detail. Minimally distracted comminuted patellar fracture is redemonstrated without significant change in appearance or alignment. No new fractures or significant interval changes are identified. IMPRESSION: Findings as above.
--- NOTE | 2017-06-04 15:51 | CP.PCM.PN ---
Subjective - Date & Time of Evaluation Date of Evaluation: 06/04/17 Time of Evaluation: 15:48 - Subjective Subjective: PT SEEN BY SURGERY, NO ADDITIONAL RECOMMENDATIONS. PT ALSO SEEN BY ORTHO SECOND OPINION; DR. FARIAS'S RECOMMENDATIONS REVIEWED AND APPRECIATED. DISCUSSED WITH DR. BOB AND PER HIM OK TO D/C BACK TO [facility] TODAY. PT FOR F/U WITH DR. FARIAS IN THE OFFICE IN 2 1/2 WEEKS. [facility] TO ARRANGE FOR F/U APPT W ORTHO W TRANSPORTATION. CM AWARE OF D/C PLAN AND SW TO ARRANGE TRANSPORT. NO FURTHER ORDERS. Objective - Vital Signs/Intake and Output Vital Signs (last 24 hours): Temp Pulse Resp BP Pulse Ox 98.0 F 71 20 145/79 94 L 06/04/17 08:41 06/04/17 08:41 06/04/17 08:41 06/04/17 08:41 06/04/17 08:41 Intake and Output: 06/04/17 06/04/17 06:59 18:59 Intake Total 10 Balance 10 - Medications Medications: Current Medications Acetaminophen (Tylenol 325mg Tab) 650 mg PO Q6 PRN PRN Reason: Headache Last Admin: 06/04/17 10:03 Dose: 650 mg Bisoprolol Fumarate (Zebeta) 5 mg PO DAILY [facility] Last Admin: 06/04/17 10:00 Dose: 5 mg Dicyclomine HCl (Bentyl) 20 mg PO DAILY [facility] Last Admin: 06/04/17 10:01 Dose: 20 mg Docusate Sodium (Colace) 200 mg PO [facility] Last Admin: 06/03/17 22:14 Dose: 200 mg Ezetimibe (Zetia) 10 mg PO DAILY [facility] Last Admin: 06/04/17 10:16 Dose: 10 mg Pantoprazole Sodium (Protonix Ec Tab) 40 mg PO DAILY [facility] Last Admin: 06/04/17 09:57 Dose: 40 mg Paroxetine HCl (Paxil Cr) 25 mg PO DAILY [facility] Last Admin: 06/04/17 10:00 Dose: 25 mg Rosuvastatin Calcium (Crestor) 5 mg PO HS [facility] Last Admin: 06/03/17 22:14 Dose: 5 mg - Labs Labs: 06/04/17 07:38 06/02/17 15:40 PT 11.5 SECONDS (9.7-12.2) 06/02/17 15:40 INR 1.0 06/02/17 15:40 APTT 27 SECONDS (21-34) 06/02/17 15:40
[2017-06-04 16:41] VITALS: O2SAT 93
[2017-06-05 01:02] VITALS: BP 123/72; PULSE 70; TEMP 98.9
--- NOTE | 2017-06-06 09:44 | DS ---
REASON FOR ADMISSION: This is an 82-year-old [place]er female with history of multiple medical problems who was admitted for bleeding at the site of IVC filter placement. COURSE OF HOSPITALIZATION: The patient was seen by Vascular Surgery, Dr. Nani Lopez. Bleeding stopped spontaneously and there was no significant drop of hemoglobin. CT angiogram of the chest was repeated and there was no evidence of pulmonary embolism. The patient was taken off anticoagulant and she was started on physical therapy. The patient was seen also by Dr. Bob for a second orthopedic opinion. The patient was discharged to [facility] on current medications, to continue physical therapy and weightbearing as tolerated. FINAL DIAGNOSES: 1. Bleeding at the site of inferior venous cava filter placement. 2. Patellar fracture, currently on a cast. 3. Hypertension. 4. History of small intestinal lymphoma. Rabia Eduardo MD
[2017-06-06] MEDS ORDERED: Pneumococcal 23-Valent Vaccine IM ONE (10:00)
--- NOTE | 2017-06-09 07:31 | CON ---
DATE: HISTORY OF PRESENT ILLNESS: Patient was seen with the resident. She apparently has some drainage from her right groin area. The patient was examined. There is a resolving hematoma in the right groin area extending down to the mons pubis. The patient is also still on Lovenox. IMPRESSION: The "bleeding" could be evacuation of the liquified hematoma and not active bleeding as the hemoglobin was stable from discharge. SUGGESTION: Discontinue Lovenox. Nani Lopez MD
== END 2017-06-05 01:15 | disposition home or self-care (01) ==
LOC: C.ER 14:39 → C.9E 17:41 → C.6T 22:28
PROVIDERS: ADMIT Internal Medicine; ATTEND Internal Medicine
DX: I97.618 Postprocedural hemorrhage of a circulatory system organ or structure following other circulatory system procedure (principal); Z86.711 Personal history of pulmonary embolism; Z79.01 Long term (current) use of anticoagulants; Z79.899 Other long term (current) drug therapy; Z85.72 Personal history of non-Hodgkin lymphomas; I10 Essential (primary) hypertension; E78.00 Pure hypercholesterolemia, unspecified; F41.9 Anxiety disorder, unspecified; F32.9 Major depressive disorder, single episode, unspecified; Z92.21 Personal history of antineoplastic chemotherapy; M19.90 Unspecified osteoarthritis, unspecified site; D63.8 Anemia in other chronic diseases classified elsewhere; S82.001D Unspecified fracture of right patella, subsequent encounter for closed fracture with routine healing; K21.9 Gastro-esophageal reflux disease without esophagitis; Z79.82 Long term (current) use of aspirin; E04.1 Nontoxic single thyroid nodule; Z85.028 Personal history of other malignant neoplasm of stomach; L76.32 Postprocedural hematoma of skin and subcutaneous tissue following other procedure
CPT/HCPCS: 36415; 71275; 73560; 73700; 80053; 85025; 85610; 85730; 99285; G0378; Q9967

== ENCOUNTER 2017-10-07 18:32 | Inpatient (IN) | payer MEDICARE, MEDICAID ==
[2017-10-07 18:44] VITALS: BMI 27.9
--- NOTE | 2017-10-07 19:07 | C.PDOC ---
History Of Present Illness 82 year old female presents to the ED c/o chest pain and palpitations that started 2 hours ago. Patient reports she feels better now and is able to speak in complete sentences. Patient denies fever, chill, nausea, vomit, diarrhea. Time Seen by Provider: 10/07/17 19:07 Chief Complaint (Nursing): Palpitations History Per: Patient History/Exam Limitations: no limitations Onset/Duration Of Symptoms: Hrs (2) Current Symptoms Are (Timing): Better Recent travel outside of the [place]: No Additional History Per: Patient Past Medical History Reviewed: Historical Data, Nursing Documentation, Vital Signs Vital Signs: Last Vital Signs Temp 97.9 F 10/07/17 20:45 Pulse 73 10/07/17 20:45 Resp 16 10/07/17 20:45 BP 128/77 10/07/17 20:45 Pulse Ox 97 10/07/17 20:45 - Medical History PMH: Anemia, Anxiety, Arthritis (JOINT PAINS), Depression, Fractures (right lower extremity), HTN, Hypercholesterolemia, Malignancy (Lymphoma (last chemo 1 year ago)) Denies: Chronic Kidney Disease Surgical History: No Surg Hx - [facility] Procedures INSERTION OF INTRALUM DEV INTO INF VENA CAVA, PERC APPROACH (05/18/17) PERCUTAN NEEDLE BX OF THYROID GLAND (12/12/14) Family History: States: Unknown Family Hx - Social History Hx Tobacco Use: No Hx Alcohol Use: No Hx Substance Use: No - Immunization History Hx Tetanus Toxoid Vaccination: No Hx Influenza Vaccination: No Hx Pneumococcal Vaccination: No Review Of Systems Constitutional: Negative for: Fever, Chills Eyes: Negative for: Vision Change Cardiovascular: Positive for: Chest Pain, Palpitations Respiratory: Negative for: Cough, Shortness of Breath Gastrointestinal: Negative for: Nausea, Vomiting Genitourinary: Negative for: Dysuria Musculoskeletal: Negative for: Back Pain Skin: Negative for: Rash Neurological: Negative for: Weakness, Numbness Psych: Negative for: Anxiety ( ) Physical Exam - Physical Exam Appears: Non-toxic, No Acute Distress Skin: Warm, Dry Head: Normacephalic Eye(s): bilateral: Normal Inspection Oral Mucosa: Moist Neck: Supple Chest: Symmetrical Cardiovascular: Rhythm Regular Respiratory: No Rales, Rhonchi (at the bases B/L), No Wheezing Gastrointestinal/Abdominal: Soft, No Tenderness, No Guarding, No Rebound Back: Normal Inspection Extremity: Capillary Refill (< 2 seconds), No Swelling Extremity: Bilateral: Atraumatic, Normal Color And Temperature, Normal ROM Pulses: Left Dorsalis Pedis: Normal, Right Dorsalis Pedis: Normal Neurological/Psych: Oriented x3, Normal Speech Gait: Steady ED Course And Treatment - Laboratory Results Result Diagrams: 10/07/17 19:31 10/07/17 19:31 ECG: Interpreted By Me, Viewed By Me ECG Rhythm: Sinus Rhythm (101), Nonspecific Changes O2 Sat by Pulse Oximetry: 95 (ON RA) Pulse Ox Interpretation: Normal - Radiology CXR: Interpreted by Me, Viewed By Me CXR Interpretation: No: Infiltrates, Fracture, Pnemothorax Progress Note: Plan: - EKG. - CXR. - Ecotrin 325 mg PO. - UA Disposition Discussed With : Rbaia Eduardo Comment: accepted the pt on his service and took over the care at 9:12 PM Doctor Will See Patient In The: Hospital Counseled Patient/Family Regarding: Studies Performed, Diagnosis - Disposition Disposition: HOSPITALIZED Disposition Time: 19:07 Condition: FAIR Forms: [facility] (Swedish) - POA Present On Arrival: Poor Glycemic Control - Clinical Impression Clinical Impression: Palpitations, Chest pain, UTI (urinary tract infection) - Scribe Statement The provider has reviewed the documentation as recorded by the Scribe Deuce Craft All medical record entries made by the Scribe were at my direction and personally dictated by me. I have reviewed the chart and agree that the record accurately reflects my personal performance of the history, physical exam, medical decision making, and the department course for this patient. I have also personally directed, reviewed, and agree with the discharge instructions and disposition. Decision To Admit - Pt Status Changed To: Hospital Disposition Of: Inpatient - Admit Certification Admit to Inpatient:: After my assessment, the patient will require hospitalization for at least two midnights. This is because of the severity of symptoms shown, intensity of services needed, and/or the medical risk in this patient being treated as an outpatient. - InPatient: Physician Admission Certification: I certify that this patient requires 2 or more midnights of care for the following reason:: After my assessment, the patient will require hospitalization for at least two midnights. This is because of the severity of symptoms shown, intensity of services needed, and/or the medical risk in this patient being treated as an outpatient. - . Bed Request Type: Telemetry Admitting Physician: Rabia Eduardo Patient Diagnosis: Palpitations, Chest pain, UTI (urinary tract infection)
[2017-10-07] MEDS ORDERED: Aspirin 325 mg EC Tablets PO STA (19:08)
[2017-10-07] MEDS ORDERED: Aspirin 325 mg EC Tablets PO ONE (19:17)
[2017-10-07 19:34] LABS: BASO # 0.1 K/uL (0.0-0.2); EOS # 0.1 K/uL (0.0-0.7); EOS % 1.3 % (0.0-4.0); LYMPH # 1.5 K/uL (1.0-4.3); LYMPH % 26.9 % (20.0-40.0); MEAN CELL VOLUME 71.5 fL (81.0-99.0); MEAN CORPUSCULAR HEMOGLOBIN 22.4 pg (27.0-31.0); MEAN CORPUSCULAR HGB CONC 31.4 g/dL (33.0-37.0); MEAN PLATELET VOLUME 7.8 fL (7.2-11.7); MONO # 0.3 K/uL (0.0-0.8); MONO % 5.5 % (0.0-10.0); NEUT # 3.6 K/uL (1.8-7.0); NEUT % 65.3 % (50.0-75.0); RBC 4.47 Mil/uL (3.80-5.20); RED CELL DISTRIBUTION WIDTH 17.2 % (11.5-14.5); WHITE BLOOD COUNT 5.5 K/uL (4.8-10.8)
[2017-10-07 19:44] LABS: INR 1.1; PROTHROMBIN TIME 11.5 SECONDS (9.7-12.2)
[2017-10-07 19:54] LABS: ALB/GLOB RATIO 1.3 (1.0-2.1); ALBUMIN 4.1 g/dL (3.5-5.0); ALT/SGPT 26 U/L (9-52); AST/SGOT 20 U/L (14-36); BLOOD UREA NITROGEN 16 mg/dL (7-17); CALCIUM 9.4 mg/dl (8.6-10.4); GFR AFRICAN-AMERICAN > 60; GFR NON-AFRICAN AMERICAN > 60
[2017-10-07 19:55] LABS: SQUAMOUS EPITHIAL < 1 /hpf (0-5); URINE BACTERIA FEW (<OCC); URINE BILIRUBIN NEGATIVE (NEGATIVE); URINE BLOOD 1+ (NEGATIVE); URINE CLARITY Clear (Clear); URINE COLOR Straw (YELLOW); URINE GLUCOSE (UA) NORMAL (Normal); URINE LEUKOCYTE ESTERASE 3+ Leu/uL (Negative); URINE PROTEIN NEGATIVE (NEGATIVE); URINE UROBILINOGEN NORMAL mg/dL (0.2-1.0)
[2017-10-07 20:06] LABS: B-TYPE NATRIURETIC PEPTIDE 163 pg/mL (0-900)
[2017-10-07] MEDS ORDERED: Piperacillin/Tazobact 3.375 gm 100 ML IVPB STA (21:01)
[2017-10-07] MEDS ORDERED: Piperacillin/Tazobact 3.375 gm 100 ML IVPB ONE (21:12)
[2017-10-08] MEDS ORDERED: guaiFENesin 100 mg/5 ml Syrup UD PO PRN (02:17)
[2017-10-08 06:20] LABS: BASO # 0.1 K/uL (0.0-0.2); BASO % 1.5 % (0.0-2.0); EOS # 0.1 K/uL (0.0-0.7); EOS % 3.1 % (0.0-4.0); HEMOGLOBIN 9.6 g/dL (11.0-16.0); LYMPH # 1.4 K/uL (1.0-4.3); LYMPH % 35.1 % (20.0-40.0); MEAN CELL VOLUME 71.5 fL (81.0-99.0); MEAN CORPUSCULAR HEMOGLOBIN 23.1 pg (27.0-31.0); MEAN CORPUSCULAR HGB CONC 32.4 g/dL (33.0-37.0); MEAN PLATELET VOLUME 8.2 fL (7.2-11.7); MONO # 0.4 K/uL (0.0-0.8); MONO % 9.1 % (0.0-10.0); NEUT # 2.1 K/uL (1.8-7.0); NEUT % 51.2 % (50.0-75.0); RBC 4.16 Mil/uL (3.80-5.20); RED CELL DISTRIBUTION WIDTH 17.3 % (11.5-14.5); WHITE BLOOD COUNT 4.1 K/uL (4.8-10.8)
[2017-10-08 06:47] LABS: CK-MB 1.18 ng/mL (0.0-3.38); TROPONIN I 0.012 ng/mL (0.00-0.120)
--- NOTE | 2017-10-08 07:26 | RAD ---
Chest x-ray single frontal view History: Chest pain. Comparison: 05/18/2017 Findings: Mild venous congestion. Mammilated right hemidiaphragm with lobulated opacity at the left lung base. Patchy increased markings at the left lung base. Nodular density projecting over the right hilar region. Biapical pleural thickening with upper lobe granulomatous changes. Additional nodular density projecting right lung apex. Tortuous ectatic aorta. Degenerative changes in the spine. Impression: Mild venous congestion. Mammilated right hemidiaphragm with lobulated opacity at the left lung base. Patchy increased markings at the left lung base. Nodular density projecting over the right hilar region. Biapical pleural thickening with upper lobe granulomatous changes. Additional nodular density projecting right lung apex. Tortuous ectatic aorta.
[2017-10-08 07:46] LABS: IRON 27 ug/dL (37-170)
[2017-10-08 08:04] LABS: % IRON SATURATION 6 (20-55); TOTAL IRON BINDING CAPACITY 463 ug/dL (250-450)
[2017-10-08] MEDS: Pantoprazole 40 mg EC Tab PO SCH (09:49)
[2017-10-08] MEDS ORDERED: CREON 24000 UNIT PO SCH (10:00)
[2017-10-08 15:37] LABS: CK-MB 1.09 ng/mL (0.0-3.38)
[2017-10-08] MEDS: Ferric Sodium Gluconat Complex 62.5 mg/5 ml Vial IVPB SCH (16:54)
--- NOTE | 2017-10-08 19:30 | CARD ---
APPROVED REPORT EKG Measurement Heart [id number] <Conclusion> Sinus rhythm with occasional premature ventricular complexes Prolonged QT Abnormal ECG
[2017-10-08] MEDS: Sucralfate 1 gm/10 ml Oral Susp UD PO SCH (22:07)
--- NOTE | 2017-10-09 02:49 | CARD ---
APPROVED REPORT EKG Measurement Heart [id number] <Conclusion> Sinus tachycardia Left axis deviation Abnormal ECG
--- NOTE | 2017-10-09 03:48 | CON ---
DATE: 10/08/2017 CARDIOLOGY CONSULTATION REASON FOR CONSULTATION: Chest pain. 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 The patient reports of chest tightness and shortness of breath. The patient denied to me having chest pain. The patient is unaware of any history of heart attack in the past. SOCIAL HISTORY: Nonsmoker, nondrinker. She is a . MEDICATIONS: Bentyl 20 mg once a day, Rocephin 1 gm intravenously daily, Colace 100 mg once a day, Crestor 5 mg once a day, Ferrlecit infusion, heparin 5000 units subcutaneous twice a day, Zebeta 5 mg once a day, Zetia 10 mg once a day. REVIEW OF SYSTEMS: No fever or chills. No vomiting or diarrhea. No syncope. PHYSICAL EXAMINATION: GENERAL: The patient is an elderly female who does not appear to be in acute distress. VITAL SIGNS: Blood pressure 134/73, heart rate 80, temperature 98.1, respirations 20. HEENT: Normocephalic. Pale conjunctivae. CHEST: Clear. HEART: S1 and S2, regular. ABDOMEN: Soft. EXTREMITIES: No edema. LABORATORY DATA: Hemoglobin and hematocrit 9.6 and 29.8, white count 12.1, platelet count 120,000. SMA-7: Sodium 139, potassium 4.3, chloride 103, CO2 of 26, glucose 109, BUN 16, creatinine 0.7. Three sets of troponin are negative. ____ normal limits. PT, PTT and INR are within normal limits. EKG today revealed sinus tachycardia at the rate of 101. Admitting EKG revealed sinus rhythm at the rate of 86 with occasional PVCs and prolonged QT interval. Chest x-ray revealed slightly widened mediastinum and prominent bronchovascular markings. Echocardiographic study performed in 05/2017 revealed normal left ventricular ejection fraction, mild aortic insufficiency. The lateral wall of the left atrium is compressed by a solid external structure possibly the liver, not aorta. Consider CT. CT scan done in 05/2017 revealed no evidence of pulmonary embolism with [id number] atherosclerotic disease, no aneurysm. Venous Doppler of lower extremity in 05/20/2017, no evidence of DVT. ASSESSMENT: 1. Chest pain, myocardial infarction is ruled out. 2. Anemia. 3. History of intestinal lymphoma. RECOMMENDATIONS: Continue current IV Rocephin 1 gm daily. Continue Ferrlecit infusion. Continue heparin 5000 units subcutaneous twice a day, Zebeta 5 mg once a day, Zetia 10 mg once a day. Obtain serum D-dimer. Suraj Helm MD
--- NOTE | 2017-10-09 04:06 | HP ---
HISTORY OF PRESENT ILLNESS: This is an 82-year-old Bulgarian female with history of multiple medical problems including intestinal lymphoma on chemotherapy presented with symptoms of shortness of breath and palpitation. The patient also was found to be anemic and the patient was admitted for further management. REVIEW OF SYSTEMS: Revealed that the patient has bilateral lower extremity numbness. Other review of system is negative. ALLERGIES: NO KNOWN ALLERGY. MEDICATIONS: As per MAR. PAST MEDICAL HISTORY: Hypertension, osteoarthritis, anxiety/depression, hypercholesterolemia, gastritis/gastroesophageal reflux disease and intestinal lymphoma. SOCIAL HISTORY: No history of smoking, EtOH or substance abuse. FAMILY HISTORY: Not contributory. PHYSICAL EXAMINATION: GENERAL: The patient is in bed comfortable, not in any cardiopulmonary distress. VITAL SIGNS: Blood pressure 134/73, temperature 98.1, respiratory rate 20, and pulse 80. HEENT: Pupils equal, reactive to light. Normal-appearing mucosa of the conjunctivae, oropharynx and nasal membrane mucosa. NECK: Supple. No JVD. No carotid bruit. No lymph node. No thyromegaly. CHEST AND LUNGS: Bilateral symmetrical expansion. Good air exchange. No rales, no rhonchi. CARDIOVASCULAR SYSTEM: PMI not localized. S1, S2. No additional sounds. ABDOMEN: Normoactive bowel sounds. No tenderness. No organomegaly. No masses. EXTREMITIES: No cyanosis, no clubbing, no edema. 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 No neurological deficit could be appreciated. ASSESSMENT: 1. Symptomatic anemia. 2. Chest pain, rule out acute coronary syndrome. 3. Intestinal lymphoma, on chemotherapy. 4. Hypertension. 5. Osteoarthritis. PLAN: Anemia workup. Cardiology and GI consult. Resume patient's home medications. Cardiac enzymes every 8 hours x3. [facility] MD Jayce
[2017-10-09] MEDS: Sucralfate 1 gm/10 ml Oral Susp UD PO SCH ×2 (08:05→21:44)
[2017-10-09 08:17] LABS: BASO % 0.5 % (0.0-2.0); EOS # 0.1 K/uL (0.0-0.7); EOS % 3.7 % (0.0-4.0); HEMOGLOBIN 9.9 g/dL (11.0-16.0); LYMPH # 1.2 K/uL (1.0-4.3); MEAN CELL VOLUME 71.4 fL (81.0-99.0); MEAN CORPUSCULAR HEMOGLOBIN 22.7 pg (27.0-31.0); MEAN CORPUSCULAR HGB CONC 31.8 g/dL (33.0-37.0); MEAN PLATELET VOLUME 8.5 fL (7.2-11.7); MONO # 0.3 K/uL (0.0-0.8); MONO % 8.1 % (0.0-10.0); NEUT # 2.3 K/uL (1.8-7.0); NEUT % 56.7 % (50.0-75.0); RBC 4.35 Mil/uL (3.80-5.20); RED CELL DISTRIBUTION WIDTH 17.7 % (11.5-14.5)
[2017-10-09 08:28] LABS: BLOOD UREA NITROGEN 14 mg/dL (7-17); CALCIUM 9.2 mg/dl (8.6-10.4); GFR AFRICAN-AMERICAN > 60; GFR NON-AFRICAN AMERICAN > 60
[2017-10-09] MEDS: Ferric Sodium Gluconat Complex 62.5 mg/5 ml Vial IVPB SCH (09:57)
[2017-10-09] MEDS: Pantoprazole 40 mg EC Tab PO SCH (09:59)
--- NOTE | 2017-10-09 15:16 | PN ---
DATE: Location 658, bed B. SUBJECTIVE: This 82-year-old female seen initially for GI consultation on 10/08/2017, re-examined again early today. Intermittent period of abdominal pain, mild generalized postprandial abdominal distention and discomfort, nausea with mild dyspepsia as well as some chest tightness and shortness of breath but no reported active bleeding. The entire chart is reviewed including but not limited to most recent lab and radiology study results, current and previous medication list, current and previous medical events as well as allergy to medication list. Today's labs showed hemoglobin 9.9, hematocrit 31.1 with low indices that will suggest hypochromic microcytic anemia with low iron and low iron saturation. Patient reported to have normal cancer marker including CEA, CA19-9, and CA125. PHYSICAL EXAMINATION: GENERAL: An 82-year-old female, awake, alert, oriented with less appetite and less oral intake. VITAL SIGNS: Afebrile with pulse of 72, respiratory rate 20 to 22, blood pressure of 140/80 with pulse of 70. HEENT: Showed pale, dry mucous membranes, nonicteric sclerae. LUNGS: A few scattered crepitation, decreased air entry at bases. HEART: Positive S1 and S2. ABDOMEN: Soft. Bowel sounds are present. No masses or organomegaly. No rebound tenderness or guarding. RECTAL: Examination deferred due to the patient's clinical presentation. EXTREMITIES: Lower extremity mild edematous changes. No clubbing or cyanosis. NEUROLOGIC: No new reported neurological deficits, sensory or motor. IMPRESSION: 1. Re-exacerbation of peptic ulcer disease. 2. Iron deficiency anemia. 3. Known history of osteoarthritis. 4. Lymphoma. 5. Hyperlipidemia. 6. Depression with hypertension. 7. Chest pain, rule out myocardial infarction. SUGGESTION: 1. Continue current management. 2. Guaiac all the stool every day x3. 3. Iron IV. 4. Patient was seen and examined fully on 10/08/2017 as per the request of the admitting MD and sectional abdominal and pelvic CAT scan was suggested at the time of my initial GI consultation. Further recommendation to follow per Dr. Salas. Carlie Salas MD
--- NOTE | 2017-10-09 16:32 | PN ---
DATE: SUBJECTIVE: The patient denies any chest pain. She is short of breath on minimal exertion. She complains of bilateral leg numbness. PHYSICAL EXAMINATION: VITAL SIGNS: Blood pressure 145/82, heart rate 76, temperature 98.4, respirations 20. HEENT: Pale conjunctivae. CHEST: Clear. HEART: S1, S2 are regular. EXTREMITIES: No edema. LABORATORY DATA: Hemoglobin and hematocrit 9.9 and 31.1, white count 4.0, platelet count 119,000. Today's SMA-7 is entirely within normal limits. ASSESSMENT: 1. Chest pain, myocardial infarction is ruled out. 2. History of intestinal lymphoma. 3. Anemia. RECOMMENDATIONS: Continue current IV Rocephin at 1 g daily, Crestor at 5 mg once a day, Ferrlecit infusion, Protonix 40 mg once a day, Zetia 10 mg once a day. I aspirated the patient. The patient was evaluated by Josue who is planning to perform endoscopy. D-dimer is within normal limits. I will pursue workup for any thrombotic condition at this point. Suraj Helm MD
--- NOTE | 2017-10-09 22:09 | CP.PCM.CON ---
History of Present Illness - History of Present Illness History of Present Illness: 82 yr old woman with pmh of intestinal lymphoma, admitted for shortness of breath, is consulted for , with a complaint of numbness and tingling of her legs bilaterally, with no weakness. Miss Adam stated that the numbness started about a year ago, and has stayed in her feet, without progressing to her legs. PMH/PSH: GERD, Hypertension, Hypercholesterolemia. s/p left knee surgery FH/SH: Hungarian, . No tobacco, no etoh. All: nkda on exam: conducted with the help of an Thai griddle cook. AAOX3. Pupils 3mm- 2mm with light. CN 2-12 normal motor: 5/5 ul and ll bl. Toes downgoing. No clonus. Sensory: decreased ft, pin in her feet bilaterally in an asymmetric fashion. Position sense is decreased as well. +1 dtr ul and ll bl. Gait is wide based, and limited by pain in left knee. Past Patient History - Infectious Disease Hx of Infectious Diseases: None - Past Medical History & Family History Past Medical History?: Yes - Past Social History Smoking Status: Never Smoked - CARDIAC Hx Hypercholesterolemia: Yes Hx Hypertension: Yes - PULMONARY Hx Respiratory Disorders: No - NEUROLOGICAL Hx Neurological Disorder: No - HEENT Hx HEENT Problems: No - RENAL Hx Chronic Kidney Disease: No - ENDOCRINE/METABOLIC Hx Endocrine Disorders: Yes (SEE COMMENT) Other/Comment: THYROID NODULE - HEMATOLOGICAL/ONCOLOGICAL Hx Anemia: Yes - INTEGUMENTARY Hx Dermatological Problems: No - MUSCULOSKELETAL/RHEUMATOLOGICAL Hx Arthritis: Yes (JOINT PAINS) Hx Falls: No - GASTROINTESTINAL Hx Gastrointestinal Disorders: Yes Hx Gastroesophageal Reflux: Yes - GENITOURINARY/GYNECOLOGICAL Hx Genitourinary Disorders: No - PSYCHIATRIC Hx Anxiety: Yes Hx Depression: Yes Hx Substance Use: No - SURGICAL HISTORY Hx Surgeries: Yes Hx Orthopedic Surgery: Yes (with right leg cast) - ANESTHESIA Hx Anesthesia: Yes Hx Anesthesia Reactions: No Hx Malignant Hyperthermia: No Meds Allergies/Adverse Reactions: Allergies Allergy/AdvReac Type Severity Reaction Status Date / Time No Known Allergies Allergy Verified 10/07/17 18:39 - Medications Medications: Current Medications Acetaminophen (Tylenol 325mg Tab) 650 mg PO Q6 PRN PRN Reason: Headache Last Admin: 10/08/17 22:07 Dose: 650 mg Bisoprolol Fumarate (Zebeta) 5 mg PO DAILY [facility] Last Admin: 10/09/17 10:05 Dose: 5 mg Dicyclomine HCl (Bentyl) 20 mg PO DAILY [facility] Last Admin: 10/09/17 10:05 Dose: 20 mg Docusate Sodium (Colace) 200 mg PO HS [facility] Last Admin: 10/08/17 22:07 Dose: 200 mg Ezetimibe (Zetia) 10 mg PO DAILY [facility] Last Admin: 10/09/17 10:05 Dose: 10 mg Ferric Sodium Gluconate Complex (Ferrlecit) 125 mg IVPB DAILY [facility] Stop: 10/13/17 15:46 Last Admin: 10/09/17 09:57 Dose: 125 mg Guaifenesin (Robitussin) 100 mg PO Q4H PRN PRN Reason: Cough Heparin Sodium (Porcine) (Heparin) 5,000 units SC Q12 [facility] Last Admin: 10/09/17 09:58 Dose: 5,000 units Home Med (Creon Dr 24,000 Units Capsule) 24,000 units PO BID [facility] Ceftriaxone Sodium 1 gm/ (Sodium Chloride) 100 mls @ 100 mls/hr IVPB DAILY [facility] PRN Reason: Protocol Last Admin: 10/09/17 09:56 Dose: 100 mls/hr Pantoprazole Sodium (Protonix Ec Tab) 40 mg PO DAILY [facility] Last Admin: 10/09/17 09:59 Dose: 40 mg Paroxetine HCl (Paxil Cr) 25 mg PO DAILY [facility] Last Admin: 10/09/17 10:05 Dose: 25 mg Rosuvastatin Calcium (Crestor) 5 mg PO HS [facility] Last Admin: 10/08/17 22:07 Dose: 5 mg Sucralfate (Carafate Oral Susp) 1 gm PO ACBHS [facility] Last Admin: 10/09/17 08:05 Dose: 1 gm Results - Vital Signs Recent Vital Signs: Last Vital Signs Temp 98.3 F 10/09/17 16:37 Pulse 76 10/09/17 16:37 Resp 20 10/09/17 16:37 BP 108/72 10/09/17 16:37 Pulse Ox 94 L 10/09/17 16:37 - Labs Result Diagrams: 10/09/17 08:05 10/09/17 08:05 Labs: Laboratory Results - last 24 hr 10/09/17 10/09/17 08:05 08:05 WBC 4.0 L RBC 4.35 Hgb 9.9 L Hct 31.1 L MCV 71.4 L MCH 22.7 L MCHC 31.8 L RDW 17.7 H Plt Count 219 MPV 8.5 Neut % (Auto) 56.7 Lymph % (Auto) 31.0 [place] % (Auto) 8.1 Eos % (Auto) 3.7 Baso % (Auto) 0.5 Neut # (Auto) 2.3 Lymph # (Auto) 1.2 [place] # (Auto) 0.3 Eos # (Auto) 0.1 Baso # (Auto) 0.0 Sodium 143 Potassium 4.0 Chloride 103 Carbon Dioxide 30 Anion Gap 14 BUN 14 Creatinine 0.7 Est GFR ( Amer) > 60 Est GFR (Non-Af Amer) > 60 Random Glucose 95 Calcium 9.2 Vitamin B12 982 H Assessment & Plan - Assessment and Plan (Free Text) Assessment: 82 yr old woman with what 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 I feel that this may be secondary to chemotherapy, and would benefit from gabapentin. PLan; 1. Start neurontin at 300 mg po qhs 2.EMG/NCV of lower limbs as outpatient. 3. Physical therapy 4. MRI L/s spine with and without patrice Thank you Dr. puentes
--- NOTE | 2017-10-09 22:40 | PN ---
DATE: 10/09/2017 SUBJECTIVE: The patient is seen today, 10/09/2017. She is not in any cardiopulmonary distress. The patient is also complaining of bilateral lower extremity numbness, and she had some periods of cardiac arrhythmia. OBJECTIVE: VITAL SIGNS: Blood pressure is 108/72, temperature 98.3, respiratory rate 20, and pulse 76. HEENT: Pupils equal and reactive to light. Normal appearing mucosa of the conjunctivae, oropharynx, and nasal membrane mucosa. NECK: Supple. No JVD. No carotid bruit. No lymph node. No thyromegaly. CHEST AND LUNGS: Bilateral symmetrical expansion. Good air exchange. No rales, no rhonchi. CARDIOVASCULAR SYSTEM: PMI not localized. S1, S2. No additional sounds. ABDOMEN: Normoactive bowel sounds. No tenderness. No organomegaly. No masses. EXTREMITIES: No cyanosis, no clubbing, no edema. 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 No neurological deficit could be appreciated. ASSESSMENT: 1. Symptomatic anemia. 2. Chest pain. 3. Myocardial infarction, rule out cardiac arrhythmia. 4. Hypertension. 5. Osteoarthritis. PLAN: Continue current medications and follow recommendations of consultants. Rabia Eduardo MD
[2017-10-10] MEDS: Sucralfate 1 gm/10 ml Oral Susp UD PO SCH ×2 (06:38→21:33)
--- NOTE | 2017-10-10 09:52 | CP.PCM.PN ---
Subjective - Date & Time of Evaluation Date of Evaluation: 10/10/17 Time of Evaluation: 09:48 - Subjective Subjective: Ms. Adam was seen and examined at the bedside. 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 She denies any headaches, dizziness, but claims of weakness when ambulating. She uses walker when ambulating to and from the bed to the bathroom. She further states of having SOB with exertion on oxygen at 2 LPM/NC. She denies any pacemaker or any metals in her body. She is able to follow simple commands. There was no untoward events overnight. Objective - Vital Signs/Intake and Output Vital Signs (last 24 hours): Temp Pulse Resp BP Pulse Ox 98.3 F 78 18 149/83 96 10/10/17 07:40 10/10/17 07:40 10/10/17 07:40 10/10/17 07:40 10/10/17 07:40 Intake and Output: 10/10/17 10/10/17 06:59 18:59 Intake Total 320 Balance 320 - Medications Medications: Current Medications Acetaminophen (Tylenol 325mg Tab) 650 mg PO Q6 PRN PRN Reason: Headache Last Admin: 10/08/17 22:07 Dose: 650 mg Bisoprolol Fumarate (Zebeta) 5 mg PO DAILY [facility] Last Admin: 10/09/17 10:05 Dose: 5 mg Dicyclomine HCl (Bentyl) 20 mg PO DAILY [facility] Last Admin: 10/09/17 10:05 Dose: 20 mg Docusate Sodium (Colace) 200 mg PO HS [facility] Last Admin: 10/09/17 21:49 Dose: Not Given Ezetimibe (Zetia) 10 mg PO DAILY [facility] Last Admin: 10/09/17 10:05 Dose: 10 mg Ferric Sodium Gluconate Complex (Ferrlecit) 125 mg IVPB DAILY [facility] Stop: 10/13/17 15:46 Last Admin: 10/09/17 09:57 Dose: 125 mg Guaifenesin (Robitussin) 100 mg PO Q4H PRN PRN Reason: Cough Last Admin: 10/09/17 22:40 Dose: 100 mg Heparin Sodium (Porcine) (Heparin) 5,000 units SC Q12 [facility] Last Admin: 10/09/17 21:45 Dose: 5,000 units Home Med (Creon Dr 24,000 Units Capsule) 24,000 units PO BID [facility] Ceftriaxone Sodium 1 gm/ (Sodium Chloride) 100 mls @ 100 mls/hr IVPB DAILY [facility] PRN Reason: Protocol Last Admin: 10/09/17 09:56 Dose: 100 mls/hr Pantoprazole Sodium (Protonix Ec Tab) 40 mg PO DAILY [facility] Last Admin: 10/09/17 09:59 Dose: 40 mg Paroxetine HCl (Paxil Cr) 25 mg PO DAILY [facility] Last Admin: 10/09/17 10:05 Dose: 25 mg Rosuvastatin Calcium (Crestor) 5 mg PO HS [facility] Last Admin: 10/09/17 21:44 Dose: 5 mg Sucralfate (Carafate Oral Susp) 1 gm PO [facility] Last Admin: 10/10/17 06:38 Dose: 1 gm - Labs Labs: 10/09/17 08:05 10/09/17 08:05 PT 11.5 SECONDS (9.7-12.2) 10/07/17 19:31 INR 1.1 10/07/17 19:31 APTT 28 SECONDS (21-34) 10/07/17 19:31 - Constitutional Appears: No Acute Distress - Head Exam Head Exam: NORMAL INSPECTION - Eye Exam Pupil Exam: PERRL - Back Exam Back Exam: Full ROM - Neurological Exam Neurological Exam: Alert, Awake, CN II-XII Intact, Oriented x3 Neuro motor strength exam: Left Upper Extremity: 5, Right Upper Extremity: 5, Left Lower Extremity: 5, Right Lower Extremity: 5 Additional comments: Alert, oriented, follow simple commands, able to ambulate within her room with walker, sensation is intact. Assessment and Plan (1) Neuropathy Assessment & Plan: Case discussed with Dr. Canseco, continue all current medical, physical, and occupational therapies. Recommend MRI of the lumbar spine. Status: Acute
[2017-10-10] MEDS: Ferric Sodium Gluconat Complex 62.5 mg/5 ml Vial IVPB SCH (10:52)
[2017-10-10] MEDS: Pantoprazole 40 mg EC Tab PO SCH (10:53)
--- NOTE | 2017-10-10 14:49 | PN ---
DATE: 10/10/2017 LOCATION: 658, bed B. SUBJECTIVE: This is an 82-year-old female seen and examined in rounds without significant clinical changes or reported active bleeding, but with generalized weakness and malaise with less appetite and less oral intake. The entire chart is reviewed including but not limited to the most recent lab and radiology study results, current and the previous medication list, current and the previous medical events. Today's lab is still pending; however the most recent lab results showed evidence of hypochromic microcytic anemia indicative of bone marrow depression with elevated vitamin B12 level. PHYSICAL EXAMINATION: GENERAL: An 82-year-old female complaining of some abdominal pain with nausea and mild dyspepsia. VITAL SIGNS: Afebrile, with pulse of 76, respiratory rate 18 to 20, blood pressure of 136/80. HEENT: Showed pale, dry, oral mucous membranes, nonicteric sclerae. LUNGS: Few scattered crepitations, decreased air entry at bases. HEART: Positive S1 and S2. ABDOMEN: Soft, with mild generalized tenderness. No mass or organomegaly. No rebound tenderness or guarding. EXTREMITIES: Without significant clubbing, cyanosis, or edema. NEUROLOGIC: No reported new neurological deficits, sensory or motor. No reported new focal deficits. IMPRESSION: 1. Re-exacerbation of peptic ulcer disease. 2. Known history of osteoarthritis. 3. Hypochromic microcytic anemia. 4. Known history of lymphoma, hyperlipidemia, hypertension. 5. Depression by history. 6. Recurrent episode of chest pain, to rule out myocardial infarction. SUGGESTIONS: 1. Continue current management. 2. Oncology/Hematology reevaluation. 3. Cancer markers. 4. Proton pump inhibitors. 5. Carafate liquid p.o. 6. Further recommendations to follow; however if the patient's symptoms persist, then endoscopic evaluation of the GI tract to be scheduled. Carlie Salas MD
--- NOTE | 2017-10-10 20:27 | PN ---
DATE: 10/10/2017 SUBJECTIVE: The patient reports postural dizziness. She denies any syncope. She complains of bilateral leg numbness. PHYSICAL EXAMINATION: VITAL SIGNS: Blood pressure 149/83, heart rate 78, temperature 98.3, respirations 18. HEENT: Pale conjunctivae. CHEST: Clear. HEART: S1 and S2, regular. EXTREMITIES: No edema. LABORATORY DATA: No lab work is reported for today. ASSESSMENT: 1. Chest pain, myocardial infarction is ruled out. 2. Anemia. 3. History of intestinal lymphoma. 4. Chronic obstructive lung disease. 5. Bilateral leg numbness. RECOMMENDATIONS: I did review the assessment and plan of the urologist. The patient was recommended to undergo MRI of the lumbar spine. I did review the images with Dr. Salas, the digital asset coordinator, and impression is re-exacerbation of sickle cell disease and recommendation is to have oncology followup with oncology markers and to continue proton pump inhibitor as well as Carafate liquid p.o., and if symptoms persist, then endoscopic evaluation will be scheduled. In the meantime, continue current IV Rocephin, Crestor, subcutaneous heparin, , Zebeta 5 mg once a day, and Zetia 10 mg once a day. Suraj Helm MD
[2017-10-11] MEDS: Sucralfate 1 gm/10 ml Oral Susp UD PO SCH ×2 (06:31→21:53)
--- NOTE | 2017-10-11 10:23 | CON ---
DATE: 10/08/[address] Salas to Dr. Eduardo. HISTORY OF PRESENT ILLNESS: I was called for GI consultation by the primary admitting MD. The patient is seen and fully examined on 10/08/2017. A shorthand writing consultation sheet left in the chart at the time of the consultation. The entire chart is reviewed including but not limited to the most recent lab and radiology study results, current and the previous medication list, current and the previous medical events, allergy to medication list, as well as all the available current and the previous medical records were reviewed. Case discussed with the staff at length. This is an 82-year-old female seen for GI consultation on 10/08/2017, after being admitted to the hospital through the emergency room with a main complaint of chest pain, palpitation, dyspepsia with nausea on and off, with some recent history of loss of appetite as well as poor oral intake with mild nausea and dyspepsia on and off. No reported active bleeding. No significant chills or fever, or shortness of breath. PAST MEDICAL HISTORY: Including but not limited to, 1. Lymphoma, had been on chemotherapy for the last one year. 2. Hypertension. 3. Depression with severe anxiety syndrome. 4. Osteoarthritis. 5. Hyperlipidemia. 6. Peptic ulcer disease. 7. Thyroid disorder. FAMILY HISTORY: Unknown. CURRENT MEDICATIONS: Post admission medication list reviewed. ALLERGIES TO MEDICATIONS: Unclear. SOCIAL HISTORY: No known history of cigarette smoking or alcohol intake. After being admitted to the hospital, the patient was found to have low hemoglobin of 10, hematocrit 32, with normal white blood cells and platelet count. Blood glucose level was 109. Chest x-ray report is seen. No acute disease. PHYSICAL EXAMINATION: GENERAL: An 82-year-old female, awake, alert, and oriented, complaining of some abdominal pain with nausea. VITAL SIGNS: Afebrile, with pulse of 70, respiratory rate 18 to 20, blood pressure 132/74. HEENT: Showed dry, oral mucous membranes. Nonicteric sclerae. LYMPH NODES: No lymphadenitis or lymphadenopathy. LUNGS: Few scattered crepitations, with decreased air entry mildly bilaterally. HEART: Positive S1 and S2. ABDOMEN: Soft, with mild generalized tenderness. No mass or organomegaly. No rebound tenderness or guarding. RECTAL EXAMINATION: Deferred due to the patient's reported complaint of some chest pain. EXTREMITIES: Without significant clubbing or cyanosis, but lower extremities with mild edematous changes. NEUROLOGIC: No reported new neurological deficits, sensory or motor. No reported focal deficits. Peripheral pulses are present, but decreased at bases. IMPRESSION: 1. Chest pain, cardiac versus noncardiac. 2. Re-exacerbation of peptic ulcer disease. 3. Past medical history as mentioned above. 4. Anemia, rule out gastrointestinal blood loss upper versus lower versus anemia secondary to chronic disease, keeping in mind that the patient has known history of lymphoma, on chemotherapy treatment. SUGGESTIONS: 1. Agree with your plan. 2. Proton pump inhibitors IV. 3. Carafate liquid p.o. 4. Guaiac all the stool daily x3. 5. Abdomen and pelvic CAT scan. 6. Cancer markers. 7. For Cardiology evaluation. 8. Serum lipase and amylase levels, besides CEA and CA-125. 9. The patient may need endoscopic evaluation of the GI tract only when he is more stable clinically, otherwise close observation to follow. Thank you for letting me participate in your patient's case management. Further recommendations to be discussed with the Admitting Medical Team as well as the programmer analyst consultant on the case. Carlie Salas MD
[2017-10-11] MEDS: Pantoprazole 40 mg EC Tab PO SCH (10:36)
[2017-10-11] MEDS: Ferric Sodium Gluconat Complex 62.5 mg/5 ml Vial IVPB SCH (10:37)
--- NOTE | 2017-10-11 13:40 | PN ---
DATE: LOCATION: 658, bed B. SUBJECTIVE: This is an 82-year-old female seen and examined early in rounds without significant clinical changes or reported active bleeding, but again intermittent period of midsternal and mid epigastric pain, much much less than before. No reported bleeding, but nausea with mild dyspepsia. No significant complaint of shortness of breath, but occasional dizziness. Also have been complaining of lower back pain recently. Today's lab is still pending, but the patient reported to have low hemoglobin and hematocrit with hypochromic microcytic anemia. PHYSICAL EXAMINATION: GENERAL: A 82-year-old female, awake, alert, and oriented. VITAL SIGNS: Afebrile with pulse of 70, respiratory rate of 20 to 22, blood pressure of 130/78. HEENT: Showed pale, dry oral mucous membrane. Nonicteric sclerae. LUNGS: Few scattered crepitation. Decreased air entry at bases. HEART: Positive S1 and S2. ABDOMEN: Soft. Bowel sounds are present. No mass or organomegaly. No rebound tenderness or guarding. Mid epigastric tenderness as well as left lower quadrant abdominal slight tenderness noticed. EXTREMITIES: Without significant reported clubbing, cyanosis, or edema. NEUROLOGIC: No reported new neurological deficits, sensory or motor. IMPRESSION: 1. Chest pain, cardiac versus noncardiac. 2. Re-exacerbation of peptic ulcer disease. 3. Hypochromic microcytic anemia, that could be secondary to gastrointestinal blood loss versus chronic disease, most likely as there is no evidence of active bleeding in the meantime. 4. Known history of osteoarthritis. 5. History of, but not limited to hypertension, lymphoma, hyperlipidemia with depression. 6. Rule out myocardial infarction by cardiology workup. SUGGESTIONS: 1. Continue current management. 2. Abdominal and pelvic CAT scan. 3. Followup cancer markers including CEA, CA19-9. 4. Bentyl 10 mg one twice a day p.r.n. with tab one twice to 3 times a day only p.r.n. 5. Further recommendations to follow. 6. If there is subsequent drop of hemoglobin and hematocrit, then upper endoscopy to be kept in mind. Carlie Salas MD
[2017-10-11] MEDS: guaiFENesin 100 mg/5 ml Syrup UD PO SCH ×3 (14:09→21:53)
--- NOTE | 2017-10-11 18:43 | PN ---
DATE: SUBJECTIVE: The patient still complains of bilateral leg numbness. She complains of dyspnea on minimal exertion. No dizziness. PHYSICAL EXAMINATION: VITAL SIGNS: Blood pressure 144/60, heart rate 77, temperature 97.5, and respirations 18. HEENT: Pale conjunctivae. CHEST: Minimal rhonchi. HEART: S1 and S2, regular. ABDOMEN: Soft. EXTREMITIES: Trace leg edema. ASSESSMENT: 1. Exacerbation of chronic obstructive lung disease. 2. Chest pain, myocardial infarction is ruled out. 3. Anemia. 4. History of intestinal lymphoma. 5. Depression. 6. Bilateral leg numbness. RECOMMENDATIONS: Continue current Carafate 1 gm twice a day, IV Rocephin 1 gm daily, Crestor 5 mg once a day, Ferrlecit infusion. I will change Robitussin 200 mg p.o. every 6 hours as scheduled and not p.r.n. Continue Zebeta 5 mg daily and Zyrtec 10 mg once a day. Suraj Helm MD
--- NOTE | 2017-10-12 00:47 | PN ---
DATE: 10/11/2017 SUBJECTIVE: The patient is seen today, 10/11/2017. She still has exertional shortness of breath. Chest x-ray was showing left-sided lobulated opacification. PHYSICAL EXAMINATION: VITAL SIGNS: Blood pressure 136/69, temperature 98.4, respiratory rate 20, and pulse 76. HEENT: Pupils equal and reactive to light. Normal-appearing mucosa of the conjunctivae, oropharynx, and nasal membrane mucosa. NECK: Supple. No JVD. No carotid bruit. No lymph node. No thyromegaly. CHEST AND LUNGS: Bilateral symmetrical expansion. Good air exchange. No rales, no rhonchi. CARDIOVASCULAR SYSTEM: PMI not localized. S1, S2. No additional sounds. ABDOMEN: Normoactive bowel sounds. No tenderness. No organomegaly. No masses. EXTREMITIES: No cyanosis, no clubbing, no edema. 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 No neurological deficit could be appreciated. ASSESSMENT: 1. Chest pain, myocardial infarction was ruled out, left lung lobulated opacity at the base of the left lung. 2. Patchy increased markings at the left lung base with nodular density projecting over the right hilar region. 3. Iron deficiency anemia. 4. Bilateral lower extremity numbness with possible radiculopathy. 5. History of intestinal lymphoma. PLAN: Continue iron supplements. We will do CAT scan with contrast of the chest. Follow GI, cardiology, and neurology recommendations. Rabia Eduardo MD
[2017-10-12] MEDS: Sucralfate 1 gm/10 ml Oral Susp UD PO SCH ×2 (06:33→21:10)
[2017-10-12] MEDS ORDERED: Iodixanol 320 MG/ML 100 ML BOTTLE IV ONE (09:28)
[2017-10-12] MEDS: Pantoprazole 40 mg EC Tab PO SCH (10:10)
[2017-10-12] MEDS: Ferric Sodium Gluconat Complex 62.5 mg/5 ml Vial IVPB SCH (10:10)
[2017-10-12] MEDS: guaiFENesin 100 mg/5 ml Syrup UD PO SCH ×4 (10:10→21:10)
[2017-10-12] MEDS ORDERED: Gadodiamide 287 MG/ML VIAL (15ML) IV ONE (12:55)
--- NOTE | 2017-10-12 14:08 | CT ---
PROCEDURE: CT Chest with contrast HISTORY: Thoracic mass COMPARISON: Chest CT without contrast 06/03/2017. TECHNIQUE: Contiguous axial images were obtained through the chest with intravenous contrast enhancement. Sagittal and coronal reconstructions were performed. IV contrast: Visipaque 320, 100 cc Radiation dose (DLP): 553.90 mGy-cm. This CT exam was performed using one or more of the following dose reduction techniques: Automated exposure control, adjustment of the mA and/or kV according to patient size, and/or use of iterative reconstruction technique. FINDINGS: LUNGS: No acute infiltrate appreciable. Trace compressive atelectasis seen related to the right lower lobe abutting a large hiatal hernia. Central airways are clear. No definite mass bilaterally. MEDIASTINUM: Unremarkable thoracic aorta. No aneurysm or dissection. Normal sized heart. Main pulmonary artery unremarkable. No vascular congestion. No gross lymphadenopathy identified in the interval in the mediastinum bilateral hilar regions. No gross axillary lymphadenopathy. A large hiatal hernia is identified once again. PLEURA: No pleural fluid. No pneumothorax. BONES: No fracture. No destructive lesion. UPPER ABDOMEN: Grossly unremarkable. OTHER FINDINGS: None. IMPRESSION: A large hiatal hernia corresponds to lobular density at the retrocardiac space bilateral medial pulmonary bases projected in prior chest radiograph 10/07/2017. Trace compression atelectasis rated related to the right lower lobe base medially. No additional pulmonary or vascular findings. .
--- NOTE | 2017-10-12 15:58 | MRI ---
PROCEDURE: MR LUMBAR SPINE WITH AND WITHOUT CONTRAST HISTORY: neuropathy COMPARISON: None available. TECHNIQUE: Multiecho multiplanar sequences were performed through the lumbar spine with and without the use of intravenous contrast. FINDINGS: Normal lumbar lordosis. There is a mild dextroscoliotic scoliosis present. Vertebral body heights are preserved. Marrow signal unremarkable. Marked diffuse desiccation is appreciated particularly the upper lumbar spine and thoracolumbar junction with prominent endplate degenerative change identified at the L1-2 level which exhibit mild enhancement which is not unusual. Further, large benign hemangioma is identified at the L2 vertebral body and there multiple bilateral inferior thoracic nerve root cysts identified. Conus medullaris unremarkable at the level of L1. Prevertebral paraspinal soft tissues appear diffusely unremarkable. No abnormal epidural or intrathecal enhancement throughout. Note is made of multiple mid to inferior sacral nerve root cyst including large right S3 nerve root cyst 2.6 cm greatest dimension. Incidental note is made of bilateral renal cysts as well. T12-L1: No disc herniation, spinal canal stenosis or neural foraminal narrowing. Minimal disc bulging identified. L1-2: No disc herniation or spinal canal stenosis. Mild disc bulging appreciate without significant central canal stenosis resulting. Moderate bilateral degenerative neural foraminal stenosis appreciated due to added finding of bilateral facet joint degenerative change. L2-3: No disc herniation, spinal canal stenosis or neural foraminal narrowing. Mild disc bulging without significant stenosis of the central canal. L3-4: No disc herniation, spinal canal stenosis or neural foraminal narrowing. Limited disc bulging is appreciated without significant central canal stenosis. L4-5: No disc herniation, spinal canal stenosis or right neural foraminal narrowing. There is a borderline left neural foraminal stenosis due to facet joint arthropathy and asymmetric disc bulging caused by scoliotic deformity. L5-S1: No disc herniation, spinal canal stenosis or neural foraminal narrowing. Limited disc bulging appreciated. OTHER FINDINGS: None. IMPRESSION: 1. No suspicious intrathecal or epidural enhancement. Limited endplate enhancement seen at L1-2 and incidentally at T9-10 on the basis of advanced degenerative disc disease as there is no fluid within the intervertebral disc space or local soft tissue reaction to suggest discitis. Patient's clinical presentation is also not one of discitis. 2. No disc herniation or severe spinal stenosis appreciable. A mild dextroscoliotic spinal deformity is appreciated which combines with variable disc bulging cause occasional limited neural foraminal stenosis is asymmetrically. No definitive fracture or spondylolisthesis appreciable. 3. Incidental bilateral renal cysts. 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
--- NOTE | 2017-10-12 16:40 | PN ---
DATE: SUBJECTIVE: The patient 00:04 pain and shortness of breath on minimal exertion. She denies any . PHYSICAL EXAMINATION: VITAL SIGNS: Blood pressure 111/65, heart rate 85, temperature 98.1, respirations 18. HEENT: Pale conjunctivae. CHEST: Bilateral rhonchi. HEART: S1 and S2 regular and distant. ABDOMEN: Soft. EXTREMITIES: Trace leg edema. ASSESSMENT: 1. Chest pain, myocardial infarction is ruled out. 2. Anemia. 3. History of intestinal lymphoma. 4. Rule out left lower lobe lung mass. 5. Rule out radiculopathy. RECOMMENDATIONS: Continue current IV Rocephin 1 g daily, Crestor at 5 mg once a day, Ferrlecit infusions, subcutaneous heparin 5000 units twice a day, Zebeta 5 mg once a day. I will follow chest CT scan that was performed today, and the patient is scheduled to undergo MRI of the lumbar spine. Suraj Helm MD
--- NOTE | 2017-10-12 17:43 | PN ---
DATE: LOCATION: 658, bed B. SUBJECTIVE: This is an 82 years old female seen and examined in rounds without significant clinical changes or reported active bleeding. Appeared to be awake, alert, oriented. The entire chart is reviewed including but not limited to the most recent lab and radiology study results, current and the previous medication list, current and the previous medical events. The patient is still having intermittent period of mild nausea and dyspepsia with less oral intake but no palpitation or significant shortness of breath that was reported before on exertion. Chest x-ray showed evidence of left-sided possible pneumonia. Case discussed at length with the staff . Today's lab is still pending, but the latest hemoglobin and hematocrit showed evidence of hypochromic microcytic anemia with normal platelet count. PHYSICAL EXAMINATION: GENERAL: A 82 years old female. VITAL SIGNS: Afebrile with pulse of 82, respiratory rate of 18 to 20, blood pressure 120/68. HEENT: Showed pale, dry oral mucous membrane. Anicteric sclerae. LUNGS: A few scattered crepitation. Decreased air entry at bases. HEART: Positive S1 and S2. ABDOMEN: Soft with mild generalized tenderness. No mass or organomegaly. No rebound tenderness or guarding. Midepigastric tenderness as well as midabdominal line tenderness noticed with slight nausea during last physical examination. EXTREMITIES: Without significant edema, clubbing, or cyanosis. NEUROLOGIC: No reported new neurological deficits, sensory or motor. No reported new focal deficits. Peripheral pulses are present but decreased at bases. IMPRESSION: 1. Chest pain, mostly likely noncardiac with re-exacerbation of peptic ulcer disease. 2. Intestinal lymphoma by history. 3. Recent history of pneumonia with known history of re-exacerbation of chronic obstructive pulmonary disease. 4. Anemia, to rule out gastrointestinal blood loss, upper versus lower versus anemia secondary to chronic disease. 5. Known history of depression. 6. Bilateral leg numbness as a major complaint . 7. Known history of osteomyelitis, hypertension with hyperlipidemia. SUGGESTIONS: 1. Continue current management. 2. Carafate liquid p.o. 3. No need for aggressive GI workup in the meantime since the patient is more stable clinically with close observation. 4. Followup cancer markers. 5. Oncology, hematology followup. Carlie Salas MD
--- NOTE | 2017-10-13 03:43 | PN ---
DATE: 10/12/2017 SUBJECTIVE: The patient is seen today, 10/12/2017. OBJECTIVE: GENERAL: She is not in any cardiopulmonary distress, but the patient still has exertional shortness of breath. VITAL SIGNS: Blood pressure 115/62, temperature 97.5, respiratory rate 20 and pulse 68. HEENT: Pupils are equal and reactive to light. Normal-appearing mucosa of the conjunctivae, oropharynx and nasal membrane mucosa. NECK: Supple. No JVD. No carotid bruit. No lymph node. No thyromegaly. CHEST AND LUNGS: Bilateral symmetrical expansion. Good air exchange. No rales. No rhonchi. CARDIOVASCULAR SYSTEM: PMI not localized. S1, S2. No additional sounds. ABDOMEN: Normoactive bowel sounds. No tenderness. No organomegaly. No masses. EXTREMITIES: No cyanosis, no clubbing, no edema. 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 No neurological deficit could be appreciated. ASSESSMENT: 1. Large hiatal hernia with pressure on the retrocardiac area as well as the lungs. 2. Chest pain, myocardial infarction was ruled out. 3. Symptomatic anemia. 4. Bilateral lower extremity numbness with MRI findings of degenerative spine disease. PLAN: We will do serial Dopplers of both lower extremities to rule out peripheral vascular disease. Discussed the patient's condition with Dr. Foster. The patient is refusing any surgical intervention. We will continue iron supplement and current medications. If the patient would develop any worsening of symptoms secondary to this large hiatal hernia, we will consider surgical intervention. Rabia Eduardo MD
[2017-10-13] MEDS: Sucralfate 1 gm/10 ml Oral Susp UD PO SCH (06:30)
[2017-10-13 06:35] LABS: BASO % 0.8 % (0.0-2.0); EOS # 0.2 K/uL (0.0-0.7); EOS % 4.9 % (0.0-4.0); HEMOGLOBIN 9.9 g/dL (11.0-16.0); LYMPH # 1.4 K/uL (1.0-4.3); LYMPH % 28.8 % (20.0-40.0); MEAN CELL VOLUME 73.4 fL (81.0-99.0); MEAN CORPUSCULAR HEMOGLOBIN 23.2 pg (27.0-31.0); MEAN CORPUSCULAR HGB CONC 31.6 g/dL (33.0-37.0); MEAN PLATELET VOLUME 8.3 fL (7.2-11.7); MONO # 0.4 K/uL (0.0-0.8); NEUT # 2.7 K/uL (1.8-7.0); NEUT % 56.5 % (50.0-75.0); NRBC % 0.2 % (0.0-2.0); RBC 4.29 Mil/uL (3.80-5.20); RED CELL DISTRIBUTION WIDTH 17.4 % (11.5-14.5); WHITE BLOOD COUNT 4.8 K/uL (4.8-10.8)
[2017-10-13 06:54] LABS: ALB/GLOB RATIO 1.3 (1.0-2.1); ALBUMIN 4.3 g/dL (3.5-5.0); ALT/SGPT 10 U/L (9-52); AST/SGOT 19 U/L (14-36); BLOOD UREA NITROGEN 17 mg/dL (7-17); CALCIUM 9.3 mg/dl (8.6-10.4); GFR AFRICAN-AMERICAN > 60; GFR NON-AFRICAN AMERICAN > 60
--- NOTE | 2017-10-13 09:07 | CP.PCM.PN ---
Subjective - Date & Time of Evaluation Date of Evaluation: 10/13/17 Time of Evaluation: 09:07 - Subjective Subjective: Ms. Adam was seen and examined at the bedside. 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 She denies any headaches, dizziness, but claims of weakness when ambulating. She uses walker when ambulating to and from the bed to the bathroom. She further states of having rehab therapy in [facility]. She is able to follow simple commands. Lumbar MRI showed degenerative disease no stenosis noted. There was no untoward events overnight. Objective - Vital Signs/Intake and Output Vital Signs (last 24 hours): Temp Pulse Resp BP Pulse Ox 98.0 F 66 18 156/73 H 96 10/13/17 07:15 10/13/17 08:37 10/13/17 07:15 10/13/17 07:15 10/13/17 07:15 - Medications Medications: Current Medications Acetaminophen (Tylenol 325mg Tab) 650 mg PO Q6 PRN PRN Reason: Headache Last Admin: 10/12/17 21:09 Dose: 650 mg Bisoprolol Fumarate (Zebeta) 5 mg PO DAILY [facility] Last Admin: 10/12/17 10:11 Dose: 5 mg Dicyclomine HCl (Bentyl) 20 mg PO DAILY [facility] Last Admin: 10/12/17 10:12 Dose: 20 mg Docusate Sodium (Colace) 200 mg PO HS [facility] Last Admin: 10/12/17 21:10 Dose: 200 mg Ezetimibe (Zetia) 10 mg PO DAILY [facility] Last Admin: 10/12/17 10:12 Dose: 10 mg Ferric Sodium Gluconate Complex (Ferrlecit) 125 mg IVPB DAILY [facility] Stop: 10/13/17 15:46 Last Admin: 10/12/17 10:10 Dose: 125 mg Guaifenesin (Robitussin) 100 mg PO QID [facility] Last Admin: 10/12/17 21:10 Dose: 100 mg Heparin Sodium (Porcine) (Heparin) 5,000 units SC Q12 [facility] Last Admin: 10/12/17 21:10 Dose: 5,000 units Ceftriaxone Sodium 1 gm/ (Sodium Chloride) 100 mls @ 100 mls/hr IVPB DAILY [facility] PRN Reason: Protocol Last Admin: 10/12/17 10:45 Dose: 100 mls/hr Pantoprazole Sodium (Protonix Ec Tab) 40 mg PO DAILY [facility] Last Admin: 10/12/17 10:10 Dose: 40 mg Paroxetine HCl (Paxil Cr) 25 mg PO DAILY [facility] Last Admin: 10/12/17 10:11 Dose: 25 mg Rosuvastatin Calcium (Crestor) 5 mg PO HS [facility] Last Admin: 10/12/17 21:10 Dose: 5 mg Sucralfate (Carafate Oral Susp) 1 gm PO ACBHS [facility] Last Admin: 10/13/17 06:30 Dose: 1 gm - Labs Labs: 10/13/17 06:26 10/13/17 06:26 PT 11.5 SECONDS (9.7-12.2) 10/07/17 19:31 INR 1.1 10/07/17 19:31 APTT 28 SECONDS (21-34) 10/07/17 19:31 - Constitutional Appears: No Acute Distress - Head Exam Head Exam: NORMAL INSPECTION - Eye Exam Pupil Exam: PERRL - Neurological Exam Neurological Exam: Alert, Awake, Oriented x3 Neuro motor strength exam: Left Upper Extremity: 5, Right Upper Extremity: 5, Left Lower Extremity: 5, Right Lower Extremity: 5 Additional comments: Neurological unchanged from previous examination. Assessment and Plan (1) Neuropathy Assessment & Plan: Case discussed with Dr. Rodrígeuz, continue all current medical, physical therapies. 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 De Oliveira in [place] for further evaluation and management, spoke with patient' s daughter ( [place]) verbalizes understanding . Status: Acute
[2017-10-13] MEDS: guaiFENesin 100 mg/5 ml Syrup UD PO SCH ×3 (10:09→17:32)
[2017-10-13] MEDS: Ferric Sodium Gluconat Complex 62.5 mg/5 ml Vial IVPB SCH (10:09)
[2017-10-13] MEDS: Pantoprazole 40 mg EC Tab PO SCH (10:10)
--- NOTE | 2017-10-13 15:30 | CP.PCM.PN ---
Subjective - Date & Time of Evaluation Date of Evaluation: 10/13/17 Time of Evaluation: 15:30 - Subjective Subjective: -FOLLOW UP WITH DR. BOB IN HIS OFFICE IN 1 WEEK---CALL THE OFFICE TOMORROW TO MAKE YOUR APPOINTMENT. -FOLLOW UP WITH DR. ZAMBRANO, DR. EARL, AND DR. MCGEE IN THEIR OFFICES WITHIN 2-3 WEEKS. -CONTINUE YOUR HOME MEDICATIONS USUAL. -NEW PRESCRIPTION FOR YOUR STOMACH HAS BEEN SENT TO YOUR PHARMACY: CARAFATE LIQUID, TAKE IT BEFORE BREAKFAST AND BEFORE BEDTIME. -WHEN YOU FOLLOW UP WITH DR. BOB IN THE OFFICE NEXT WEEK, HE WILL DISCUSS WITH YOU THE RESULTS FROM ALL YOUR TESTS, INCLUDING THE ONE DONE OF YOUR LEGS. -HOME CARE SERVICES HAVE BEEN ARRANGED FOR YOU WITH [facility]; THEY WILL CONTACT YOU THIS WEEK TO ARRANGE A DAY TO MAKE THE INITIAL HOME VISIT. -IF YOU HAVE ANY FURTHER QUESTIONS OR CONCERNS, CONTACT DR. BOB' OFFICE. Objective - Vital Signs/Intake and Output Vital Signs (last 24 hours): Temp Pulse Resp BP Pulse Ox 98.0 F 74 18 156/73 H 96 10/13/17 07:15 10/13/17 13:05 10/13/17 07:15 10/13/17 07:15 10/13/17 07:15 Intake and Output: 10/13/17 10/13/17 06:59 18:59 Intake Total 600 Balance 600 - Medications Medications: Current Medications Acetaminophen (Tylenol 325mg Tab) 650 mg PO Q6 PRN PRN Reason: Headache Last Admin: 10/13/17 12:30 Dose: 650 mg Bisoprolol Fumarate (Zebeta) 5 mg PO DAILY [facility] Last Admin: 10/13/17 10:12 Dose: 5 mg Dicyclomine HCl (Bentyl) 20 mg PO DAILY [facility] Last Admin: 10/13/17 10:12 Dose: 20 mg Docusate Sodium (Colace) 200 mg PO HS [facility] Last Admin: 10/12/17 21:10 Dose: 200 mg Ezetimibe (Zetia) 10 mg PO DAILY [facility] Last Admin: 10/13/17 10:12 Dose: 10 mg Ferric Sodium Gluconate Complex (Ferrlecit) 125 mg IVPB DAILY [facility] Stop: 10/13/17 15:46 Last Admin: 10/13/17 10:09 Dose: 125 mg Gabapentin (Neurontin) 300 mg PO HS [facility] Guaifenesin (Robitussin) 100 mg PO QID [facility] Last Admin: 10/13/17 13:40 Dose: 100 mg Heparin Sodium (Porcine) (Heparin) 5,000 units SC Q12 [facility] Last Admin: 10/13/17 10:10 Dose: 5,000 units Ceftriaxone Sodium 1 gm/ (Sodium Chloride) 100 mls @ 100 mls/hr IVPB DAILY [facility] PRN Reason: Protocol Last Admin: 10/13/17 11:15 Dose: 100 mls/hr Pantoprazole Sodium (Protonix Ec Tab) 40 mg PO DAILY [facility] [place] Last Admin: 10/13/17 10:10 Dose: 40 mg Paroxetine HCl (Paxil Cr) 25 mg PO DAILY [facility] [place] Last Admin: 10/13/17 10:12 Dose: 25 mg Rosuvastatin Calcium (Crestor) 5 mg PO HS [facility] [place] Last Admin: 10/12/17 21:10 Dose: 5 mg Sucralfate (Carafate Oral Susp) 1 gm PO ACBHS [facility] [place] Last Admin: 10/13/17 06:30 Dose: 1 gm - Labs Labs: 10/13/17 06:26 10/13/17 06:26 PT 11.5 SECONDS (9.7-12.2) 10/07/17 19:31 INR 1.1 10/07/17 19:31 APTT 28 SECONDS (21-34) 10/07/17 19:31
[2017-10-13 15:31] VITALS: BP 125/57; PULSE 60; RESP 20; TEMP 98; O2SAT 98
--- NOTE | 2017-10-13 19:46 | PN ---
DATE: 10/13/2017 SUBJECTIVE: The patient is experiencing shortness of breath on minimal effort. She denies any substernal chest pain. She is experiencing bilateral leg numbness. PHYSICAL EXAMINATION: VITAL SIGNS: Blood pressure 156/63, heart rate 74, temperature 98, respirations 18. HEENT: Normocephalic. CHEST: Bilateral rhonchi. HEART: S1 and S2 regular. EXTREMITIES: No edema. LABORATORY DATA: Hemoglobin and hematocrit 9.9 and 31.4, white count and platelet count are within normal limits. Today's SMA-7 is within normal limits except for carbon dioxide of 31. Arterial ultrasound was performed. The reports are still pending. Lumbar spine MRI reveals no suspicious intrathecal or epidural enhancement. Limited endplate has been seen at L1-L2 and then centrally at T9-10 on the basis of advanced disease. The patient's clinical presentation is also not one of diskitis. No disk herniation or severe spinal stenosis appreciated, and mild disco scoliotic spinal deformity is appreciated. Incidental bilateral renal cyst disease. Chest CT scan: Large hiatus hernia corresponding to lobular density at the retrocardiac space and bilateral major pulmonary bases projected in prior chest x-ray. Trace compression atelectasis related to right lower lobe base medially. No additional pulmonary or vascular findings. SMA-7 is within normal limits except for carbon dioxide of 31. ASSESSMENT AND PLAN: 1. Atypical chest pain. Myocardial infarction was ruled out. 2. Exacerbation of chronic obstructive lung disease. 3. Bilateral leg numbness. 4. Anemia. RECOMMENDATIONS: Continue current IV Rocephin 1 gm daily, Crestor 5 mg once a day, Ferrlecit infusion, subcutaneous heparin 5000 units twice a day, Neurontin 300 mg daily, Lipitor 5 mg once a day, Zyrtec 10 mg once a day. Suraj Helm MD
--- NOTE | 2017-10-13 22:38 | PN ---
DATE: 10/13/2017 LOCATION: 658, bed B. SUBJECTIVE: This is 82 years old female, seen and examined in rounds early today appeared to be somewhat more awake and alert with complain of generalized weakness and malaise, but no actual chest pain or palpitation as yesterday. The patient is still having periods of mild dyspepsia. The entire chart is reviewed including, but not limited to the most recent lab and radiology study results, current and the previous medication list, current and the previous medical events. Case discussed with Dr. Eduardo at length as well as the patient herself and family members. Today's lab showed hemoglobin of 9.9, hematocrit 31.4 with low indices highly suggestive of hypochromic microcytic anemia. CO2 content 31 indicative of respiratory alcoholics. Liver function test reported to be within normal limits. The patient had MRI of the lumbar spine yesterday. Official report is seen. PHYSICAL EXAMINATION: GENERAL: An 82 years old female . VITAL SIGNS: Afebrile with pulse of 64, respiratory rate 20 to 22, blood pressure 130/54. HEENT: Showed pale, dry oral mucous membranes. Nonicteric sclerae. LUNGS: Few scattered crepitations. Decreased air entry at bases. HEART: Positive S1 and S2. ABDOMEN: Soft with slight distention with mild generalized tenderness. No mass or organomegaly. No rebound tenderness or guarding. EXTREMITIES: Without significant clubbing, cyanosis or edema. NEUROLOGIC: No reported new neurological deficits, sensory or motor. The patient tolerating oral intake well. IMPRESSION: 1. Reexacerbation of peptic ulcer disease. 2. Chest pain most likely noncardiac with dyspepsia and mild dysphagia. 3. Anemia, most likely secondary to above and chronic disease; however, no evidence of active bleeding. 4. Intestinal lymphoma by history. Reported recent history of pneumonia with reexacerbation of chronic obstructive pulmonary disease. 5. Known history of depression. 6. Bilateral leg numbness, please see the MRI of the spine reported. 7. Known history of hyperlipemia, hypertension and osteomyelitis. SUGGESTIONS: 1. Continue current management. 2. Proton pump inhibitor. 3. Anti reflux measure. 4. If the that decision was made and after long discussion with Dr. Eduardo. However, if there is any recurrent symptoms including severe dyspepsia or/and nausea and vomiting, then endoscopic evaluation of the GI tract will be kept in mind. Carlie Salas MD
--- NOTE | 2017-10-14 12:16 | VASCLAB ---
STUDY DESCRIPTION: HISTORY: PVD PRIORS: None. TECHNIQUE: Pulse volume recording waveforms and segmental pressures of bilateral lower extremities at multiple levels were obtained. Ankle Brachial Indices (ABIs) were calculated. Report prepared by LONG Alejo, RVT RIGHT LOWER EXTREMITY: * Brachial artery: Pressure - 135 mmHg. * High thigh: Pressure - mmHg: Ratio - : PVR waveform - Pulsatile * Low thigh: Pressure - mmHg: Ratio - PVR waveform: Pulsatile * Calf: Pressure - 154 mmHg: Ratio - 1.14 PVR waveform: Pulsatile * Posterior tibial Artery: Pressure - 160 mmHg: Ratio - 1.19 PVR waveform: Pulsatile * Dorsalis pedis Artery: Pressure - 151 mmHg: Ratio - 1.12 PVR waveform: Pulsatile * Great toe: Pressure - mmHg: Ratio - PVR waveform: Ankle brachial index (SHELBY): 1.19 LEFT LOWER EXTREMITY: * Brachial artery: Pressure - 127 mmHg. * High thigh: Pressure - mmHg: Ratio - : PVR waveform - Pulsatile * Low thigh: Pressure - mmHg: Ratio - PVR waveform: Pulsatile * Calf: Pressure - 174 mmHg: Ratio - 1.29 PVR waveform: Pulsatile * Posterior tibial Artery: Pressure - 168 mmHg: Ratio - 1.24 PVR waveform: Pulsatile * Dorsalis pedis Artery: Pressure - 166 mmHg: Ratio - 1.23 PVR waveform: Pulsatile * Great toe: Pressure - mmHg: Ratio - PVR waveform: Ankle brachial index (SHELBY): 1.24 OTHER FINDINGS: Right: Left: IMPRESSION: Right: There was no evidence of hemodynamically significant arterial insufficiency in the right lower extremity. Left: There was no evidence of hemodynamically significant arterial insufficiency in the left lower extremity.
== END 2017-10-13 19:22 | disposition home or self-care (01) | DRG 313 ==
LOC: C.ER 18:32 → C.9E 21:07 → C.6T 21:41 → OBSVTOIN 10-08 16:16
PROVIDERS: ADMIT Internal Medicine; ATTEND Internal Medicine
DX: R07.89 Other chest pain (principal); N39.0 Urinary tract infection, site not specified; J44.1 Chronic obstructive pulmonary disease with (acute) exacerbation; I49.9 Cardiac arrhythmia, unspecified; I10 Essential (primary) hypertension; D50.9 Iron deficiency anemia, unspecified; G62.0 Drug-induced polyneuropathy; T45.1X5A Adverse effect of antineoplastic and immunosuppressive drugs, initial encounter; M19.90 Unspecified osteoarthritis, unspecified site; K44.9 Diaphragmatic hernia without obstruction or gangrene; K27.9 Peptic ulcer, site unspecified, unspecified as acute or chronic, without hemorrhage or perforation; K21.9 Gastro-esophageal reflux disease without esophagitis; F32.9 Major depressive disorder, single episode, unspecified; R13.10 Dysphagia, unspecified; E78.5 Hyperlipidemia, unspecified; E78.00 Pure hypercholesterolemia, unspecified; Z85.72 Personal history of non-Hodgkin lymphomas; Z92.21 Personal history of antineoplastic chemotherapy; Z87.01 Personal history of pneumonia (recurrent); Z87.11 Personal history of peptic ulcer disease